=== PATIENT | male | born 1950 | race Caucasian/White ===

== ENCOUNTER 2016-10-10 14:26 | Inpatient (IN) | payer OTHER ==
[~2016-10-10] VITALS: Ht 172.7 cm; Wt 83.5 kg
[2016-10-10 14:27] VITALS: BP 167/84; PULSE 76; RESP 20; TEMP 97.6; O2SAT 99
[2016-10-10 14:59] VITALS: RESP 18; O2SAT 96
[2016-10-10] MEDS ORDERED: ASPI-110 PO (14:59)
[2016-10-10] MEDS ORDERED: NEXI20CA PO (14:59)
[2016-10-10] MEDS ORDERED: MONT10TA4 PO (14:59)
[2016-10-10] MEDS ORDERED: ACYC-101 PO (14:59)
[2016-10-10] MEDS ORDERED: VENTAER INH (14:59)
[2016-10-10] MEDS ORDERED: ADVA250A INH (14:59)
[2016-10-10] MEDS ORDERED: SODIUM CHLORIDE 0.9% FLUSH 10 ML FLUSH IVF PRN (15:00)
[2016-10-10 15:18] LABS: AUTOMATED NEUTROPHIL # 6.6 TH/MM3 (1.8-7.7); BASOPHIL # 0.1 TH/MM3 (0-0.2); BASOPHIL % 0.5 % (0.0-2.0); EOSINOPHIL # 0.2 TH/MM3 (0-0.4); EOSINOPHIL % 2.4 % (0.0-4.0); HEMATOCRIT 44.4 % (39.0-51.0); HEMO FLAGS DIFF FINAL; LYMPH % 23.9 % (9.0-44.0); LYMPHOCYTE # 2.4 TH/MM3 (1.0-4.8); MEAN CELL VOLUME 92.5 FL (80.0-100.0); MEAN CORPUSCULAR HEMOGLOBIN 30.5 PG (27.0-34.0); MEAN CORPUSCULAR HGB CONC 32.9 % (32.0-36.0); MONO % 8.1 % (0.0-8.0); NEUT % 65.1 % (16.0-70.0); PLATELET COUNT 289 TH/MM3 (150-450); RED CELL DISTRIBUTION WIDTH 13.4 % (11.6-17.2); WHITE BLOOD COUNT 10.1 TH/MM3 (4.0-11.0)
--- NOTE | 2016-10-10 15:20 | PD ---
HPI Chief Complaint: Medical Clearance Time Seen by Provider: 14:57 Travel History International Travel<30 days: No Contact w/Intl Traveler<30days: No Traveled to known affect area: No History of Present Illness HPI The patient 66 years old and arrives here after a stat MRI of the brain with and without contrast was performed at [facility]. 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 The patient was seen at an outpatient ophthalmology office this morning, Dr. Golden, who noted no visual field deficit and he ordered the MRI stat. In summary the patient has had weeks of worsening expressive aphasia. His notes that the patient's text messages don't make sense. He complains of some weakness in the right foot at times and furthermore that he has been falling towards the right on occasion. Dr. Golden, of ophthalmology, reports the patient was appropriate at the time of his examination with no focal neurologic deficit he could appreciate. PFSH Past Medical History Asthma: Yes Diabetes: No GERD: Yes Respiratory: Yes (ASTHMA) Tetanus Vaccination: > 5 Years Influenza Vaccination: No Past Surgical History Surgical History: No Previous Surgery Social History Alcohol Use: No Tobacco Use: No Substance Use: No Allergies-Medications (Allergen,Severity, Reaction): Coded Allergies: Penicillin (Verified Allergy, Unknown, FAMILIAL, 10/10/16) Reported Meds & Prescriptions Reported Meds & Active Scripts Active Reported Ventolin Hfa 18 GM Inh (Albuterol Sulfate) 90 Mcg/Act Aer 1 Puff INH Q4H PRN Nexium (Esomeprazole DR) 20 Mg Capdr 20 Mg PO DAILY Aspirin 81 (Aspirin) 81 Mg Tabdr 81 Mg PO DAILY Montelukast (Montelukast Sodium) 10 Mg Tab 10 Mg PO HS Advair Diskus Inh (Fluticasone-Salmeterol Inh) 250-50 Mcg/Blist Aer 1 Puff INH BID Rinse mouth after use. Zovirax (Acyclovir) 800 Mg Tab 800 Mg PO BID Review of Systems Except as stated in HPI: all other systems reviewed are Neg Physical Exam Narrative GENERAL: 66-year-old male well-nourished well-developed pleasant SKIN: Focused skin assessment warm/dry. HEAD: Atraumatic. Normocephalic. EYES: Pupils equal and round. No scleral icterus. No injection or drainage. ENT: No nasal bleeding or discharge. Mucous membranes pink and moist. NECK: Trachea midline. No JVD. CARDIOVASCULAR: Regular rate and rhythm. No murmur appreciated. RESPIRATORY: No accessory muscle use. Clear to auscultation. Breath sounds equal bilaterally. GASTROINTESTINAL: Abdomen soft, non-tender, nondistended. Hepatic and splenic margins not palpable. MUSCULOSKELETAL: No obvious deformities. No clubbing. No cyanosis. No edema. NEUROLOGICAL: Expressive aphasia is noted although the patient can more or less articulate his thoughts effectively. There is no focal cranial nerve deficit. Motor function is normal. PSYCHIATRIC: Appropriate mood and affect; insight and judgment normal. Data Data Last Documented VS Vital Signs Date Time Temp Pulse Resp B/P Pulse Ox O2 Delivery O2 Flow Rate FiO2 10/10/16 14:59 18 96 Room Air 10/10/16 14:50 2 10/10/16 14:27 97.6 167/84 Vital signs reviewed Orders Basic Metabolic Panel (Bmp) (10/10/16 14:57) Complete Blood Count With Diff (10/10/16 14:57) Ecg Monitoring (10/10/16 14:57) Iv Access Insert/Monitor (10/10/16 14:57) Oximetry (10/10/16 14:57) Sodium Chloride 0.9% Flush (Ns Flush) (10/10/16 15:00) Dexamethasone Inj (Decadron Inj) (10/10/16 16:00) Levetiracetam 1000 Mg Inj (Keppra 1000 M (10/10/16 16:00) Ct Thorax/ Chest W Iv Contrast (10/10/16 16:00) Ct Abd/Pel W Iv Contrast(Rout) (10/10/16 16:00) Admit Order (Ed Use Only) (10/10/16 16:00) Acyclovir (Zovirax) (10/10/16 21:00) Albuterol Hfa Inh (Proair Hfa Inh) (10/10/16 16:15) Montelukast (Singulair) (10/10/16 21:00) (Nf) Esomeprazole Dr (Nexium) (10/11/16 09:00) (Nf) Fluticasone-Salmeterol Inh (Advair (10/10/16 21:00) Ns + Kcl 20 Meq Inj (Ns + Kcl 20 Meq Inj (10/10/16 16:15) Admit To Inpatient (10/10/16 ) Vital Signs (Adult) Q4H (10/10/16 16:15) Neuro Checks . ORDERED (10/10/16 16:15) Activity Oob Ad Anitra (10/10/16 16:15) Elevate Head Of Bed (10/10/16 16:15) Intake + Output DEIRDRE.Q8H (10/10/16 16:15) Npo After Midnight W/ Po Meds (10/11/16 Breakfast) Diet Regular Basic (10/10/16 Dinner) Sodium Chloride 0.9% Flush (Ns Flush) (10/10/16 16:15) Sodium Chloride 0.9% Flush (Ns Flush) (10/10/16 21:00) Levetiracetam (Keppra) (10/10/16 16:15) Lorazepam Inj (Ativan Inj) (10/10/16 16:15) Docusate Sodium (Colace) (10/10/16 21:00) Magnesium Hydroxide Liq (Milk Of Magnesi (10/10/16 16:15) Al-Mag Hy-Si 40-40-4 Mg/Ml Liq (Mag-Al P (10/10/16 16:15) Ondansetron Inj (Zofran Inj) (10/10/16 16:15) Calcium Gluconate Inj (Calcium Gluconate (10/10/16 16:15) Potassium Chlor 20 Meq Premix (Kcl 20 Me (10/10/16 16:15) Magnesium Sulfate Inj (Magnesium Sulfate (10/10/16 16:15) Acetamin-Hydrocod 325-10 Mg (Hope 10-32 (10/10/16 16:15) Acetamin-Hydrocod 325-10 Mg (Hope 10-32 (10/10/16 16:15) Morphine Inj (Morphine Inj) (10/10/16 16:15) Dexamethasone Inj (Decadron Inj) (10/10/16 16:15) Labetalol Inj (Trandate Inj) (10/10/16 16:15) Clonidine (Catapres) (10/10/16 16:15) Acetaminophen (Tylenol) (7/6/17 16:15) Menthol Litzy ([place] Litzy) (10/10/16 16:15) Zolpidem (Ambien) (10/10/16 16:15) Albuterol Neb (Albuterol Neb) (10/10/16 16:15) Nicardipine Inj (Cardene Inj) (10/10/16 16:15) Inpatient Certification (10/10/16 ) Act Partial Throm Time (Ptt) (10/10/16 16:15) Prothrombin Time / Inr (Pt) (10/10/16 16:15) Type And Screen (10/10/16 16:15) Labs Laboratory Tests Test 10/10/16 15:00 White Blood Count 10.1 TH/MM3 Red Blood Count 4.80 MIL/MM3 Hemoglobin 14.6 GM/DL Hematocrit 44.4 % Mean Corpuscular Volume 92.5 FL Mean Corpuscular Hemoglobin 30.5 PG Mean Corpuscular Hemoglobin 32.9 % Concent Red Cell Distribution Width 13.4 % Platelet Count 289 TH/MM3 Mean Platelet Volume 7.9 FL Neutrophils (%) (Auto) 65.1 % Lymphocytes (%) (Auto) 23.9 % Monocytes (%) (Auto) 8.1 % Eosinophils (%) (Auto) 2.4 % Basophils (%) (Auto) 0.5 % Neutrophils # (Auto) 6.6 TH/MM3 Lymphocytes # (Auto) 2.4 TH/MM3 Monocytes # (Auto) 0.8 TH/MM3 Eosinophils # (Auto) 0.2 TH/MM3 Basophils # (Auto) 0.1 TH/MM3 CBC Comment DIFF FINAL Differential Comment Sodium Level 140 MEQ/L Potassium Level 4.1 MEQ/L Chloride Level 108 MEQ/L Carbon Dioxide Level 27.5 MEQ/L Anion Gap 5 MEQ/L Blood Urea Nitrogen 18 MG/DL Creatinine 1.12 MG/DL Estimat Glomerular Filtration 66 ML/MIN Rate Random Glucose 107 MG/DL Calcium Level 8.8 MG/DL [facility] Medical Decision Making Medical Screen Exam Complete: Yes Emergency Medical Condition: Yes Medical Record Reviewed: Yes Differential Diagnosis Intracranial mass, infection, stroke Narrative Course 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 The tumor measures 6. centimeters by 4.8 cm. He has expressive aphasia and has reportedly been falling towards the right although he is ambulatory in the ER with an essentially normal gait. CBC & BMP Diagram 10/10/16 15:00 MR imaging available is on the [facility] website. This case was discussed with Dr Browne of radiology and Dr Head for neurosurgery. The patient will be admitted to Dr. Head's service. CT thorax and abdomen/pelvis ordered. Decadron 4mg q6h, 1g Keppra, ISC admission. Of note upon reassessment there appears to be a zoster-like rash overlying the left anterior chest wall and left neck. All the patient's questions were answered at the bedside with his understanding that they are not considered expert opinion for surgical management and prognosis. Critical Care Narrative Aggregate critical care time was 35 minutes. Time to perform other separately billable procedures was not included in the critical care time. My time did not include minutes spent treating any other patients simultaneously or on activities that did not directly contribute to the patient's treatment. The services I provided to this patient were to treat and/or prevent clinically significant deterioration that could result in: Herniation of the brain, permanent neurologic deficit I provided critical care services requiring my management, as noted below: Chart data review, documentation time, medication orders and management, vital sign assessments/reviewing monitor data, ordering and reviewing lab tests, ordering and interpreting/reviewing x-rays and diagnostic studies, care of the patient and discussion of the patient with the admitting physicians. Diagnosis Primary Impression: Intracranial mass Additional Impression: Expressive aphasia Admitting Information Admitting Physician Requests: Jonny Milan MD Oct 10, 2016 15:20
[2016-10-10 15:33] LABS: BICARBONATE 27.5 MEQ/L (21.0-32.0); POTASSIUM 4.1 MEQ/L (3.5-5.1)
[2016-10-10] MEDS ORDERED: ONDANSETRON HCL 4 MG/2 ML VIAL IV PRN (16:15)
[2016-10-10] MEDS ORDERED: MORPHINE SULFATE 4 MG/ML INJ IV PRN (16:15)
[2016-10-10] MEDS ORDERED: LORazepam 2 MG/ML VIAL IVP PRN (16:15)
[2016-10-10] MEDS ORDERED: MAGNESIUM HYDROXIDE SUSP 30 ML CUP PO PRN (16:15)
[2016-10-10] MEDS ORDERED: LABETALOL HCL 100 MG/20 ML VIAL IV PRN (16:15)
[2016-10-10] MEDS ORDERED: POTASSIUM CHLOR 20 MEQ PREMIX 100 ML IV PRN (16:15)
[2016-10-10] MEDS ORDERED: MAGNESIUM SULFATE INJ 2 GM in SODIUM CHLORIDE 0.9% INJ 100 ML IV PRN (16:15)
[2016-10-10] MEDS ORDERED: cloNIDine HCL 0.1 MG TAB PO PRN (16:15)
[2016-10-10] MEDS ORDERED: MENTHOL LOZENGE BUCCAL PRN (16:15)
[2016-10-10] MEDS ORDERED: ALBUTEROL SULFATE 90 MCG/ACT HFA 18 GM INHALER INH PRN (16:15)
[2016-10-10] MEDS ORDERED: niCARdipine INJ 25 MG in SODIUM CHLOR 0.9% 250 ML INJ 250 ML IV SCH (16:15)
[2016-10-10] MEDS ORDERED: CALCIUM GLUCONATE INJ 1 GM in SODIUM CHLORIDE 0.9% INJ 100 ML IV PRN (16:15)
[2016-10-10] MEDS ORDERED: ALUMINUM/MAGNESIUM/SIMETH 30 ML CUP PO PRN (16:15)
[2016-10-10] MEDS ORDERED: ZOLPIDEM TARTRATE 5 MG TAB PO PRN (16:15)
[2016-10-10] MEDS ORDERED: ACETAMINOPHEN/HYDROcodone 325 MG/10 MG TAB PO PRN ×2 (16:15)
[2016-10-10] MEDS ORDERED: SODIUM CHLORIDE 0.9% FLUSH 10 ML FLUSH IV FLUSH PRN (16:15)
[2016-10-10] MEDS ORDERED: ACETAMINOPHEN 325 MG TAB PO PRN (16:15)
[2016-10-10] MEDS ORDERED: IOHEXOL 350 MG/ML 10 ML VIAL (for RAD DIAG) IV ONE (17:08)
--- NOTE | 2016-10-10 17:24 | RADRPT ---
EXAM DATE/TIME: 10/10/2016 16:54 [facility] COMPARISON: No previous studies available for comparison. INDICATIONS : Patient has mass left temporal lobe, patient having difficulty speeking, sent to evaluate chest,abdom in and pekvis. IV CONTRAST: 90 cc Omnipaque 350 (iohexol) IV ; Cumulative dose for multiple exams. RADIATION DOSE: 5.22 CTDIvol (mGy) ; Combined studies - Thorax/Abdomen/Pelvis MEDICAL HISTORY : None SURGICAL HISTORY : None. ENCOUNTER: Initial ACUITY: 1 day PAIN SCALE: 0/10 LOCATION: chest TECHNIQUE: Volumetric scanning of the chest was performed. Using automated exposure control and adjustment of t he mA and/or kV according to patient size, radiation dose was kept as low as reasonably achievable to obtain optimal diagnostic quality images. DICOM format image data is available electronically for review and comparison. FINDINGS: LUNGS: There some scarring in the right apex. There is a faint reticulonodular infiltrate in the anterior ri ght upper lung. Otherwise, the lungs are grossly clear. No definite pulmonary masses are demonstrated . There some mild bronchiectasis in the anterior left lower lung. PLEURA: There is no pleural thickening or pleural effusion. MEDIASTINUM: The heart and great vessels demonstrate no acute abnormality. There is no mediastinal or hilar lymph adenopathy. AXILLAE: Within normal limits. No lymphadenopathy. SKELETAL: Within normal limits for patient age. MISCELLANEOUS: The visualized upper abdominal organs demonstrate no acute abnormality. There are a few well-defined hepatic cysts throughout the liver. There appear to be gallstones in the gallbladder. CONCLUSION: 1. Faint reticulonodular infiltrate in the anterior right upper lung suggestive of an inflammatory ty pe process. 2. No definite pulmonary masses are demonstrated. 3. There is some bronchiectasis in the anterior left lower lung. 4. Several benign-appearing hepatic cysts. Karlo Marte MD on October 10, 2016 at 17:18 Board Certified Radiologist. This report was verified electronically.
--- NOTE | 2016-10-10 17:42 | RADRPT ---
EXAM DATE/TIME: 10/10/2016 16:55 [facility] COMPARISON: No previous studies available for comparison. INDICATIONS : Patient has mass left temporal lobe, difficulty speaking, evaluate chest,abdomin and pelvis. IV CONTRAST: 90 cc Omnipaque 350 (iohexol) IV ; Cumulative dose for multiple exams. ORAL CONTRAST: No oral contrast ingested. RADIATION DOSE: 5.22 CTDIvol (mGy) ; Combined studies - Thorax/Abdomen/Pelvis MEDICAL HISTORY : None SURGICAL HISTORY : None. ENCOUNTER: Initial ACUITY: 1 day PAIN SCALE: 0/10 LOCATION: abdomin TECHNIQUE: Volumetric scanning of the abdomen and pelvis was performed. Using automated exposure control and ad justment of the mA and/or kV according to patient size, radiation dose was kept as low as reasonably achievable to obtain optimal diagnostic quality images. DICOM format image data is available electro nically for review and comparison. FINDINGS: LOWER LUNGS: The visualized lower lungs are clear. LIVER: Homogeneous density. Multiple not appearing hepatic cysts are seen throughout the liver. The largest cyst measures 2.3 cm in the right lobe. There are multiple stones in the gallbladder. No surrounding inflammatory changes are seen. There is no dilation of the biliary tree. SPLEEN: Normal size without lesion. PANCREAS: Within normal limits. KIDNEYS: Normal in size and shape. There is no mass, stone or hydronephrosis. ADRENAL GLANDS: Within normal limits. VASCULAR: There is no aortic aneurysm. BOWEL/MESENTERY: The stomach, small bowel, and colon demonstrate no acute abnormality. There is no free intraperitone al air or fluid. The appendix is unremarkable. There is scattered diverticulosis of the descending an d sigmoid colon. No inflammatory changes. ABDOMINAL WALL: Within normal limits. RETROPERITONEUM: There is no lymphadenopathy. BLADDER: No wall thickening or mass. REPRODUCTIVE: Within normal limits. INGUINAL: There is no lymphadenopathy or hernia. MUSCULOSKELETAL: Within normal limits for patient age. CONCLUSION: 1. Multiple benign-appearing hepatic cysts. 2. Gallstones in the gallbladder. No biliary tract obstruction. 3. Scattered diverticulosis of the descending and sigmoid colon without inflammatory changes. Karlo Marte MD on October 10, 2016 at 17:36 Board Certified Radiologist. This report was verified electronically.
[2016-10-10 17:47] VITALS: BP 157/77; PULSE 77; RESP 18; O2SAT 96
[2016-10-10] MEDS: NS + KCL 20 MEQ INJ 1,000 ML IV SCH (17:53)
[2016-10-10] MEDS ORDERED: levETIRAcetam 1000 MG INJ 100 ML IV ONE (18:00)
[2016-10-10] MEDS ORDERED: DEXAMETHASONE SOD PHOS 4 MG/ML VIAL IV PUSH ONE (18:00)
[2016-10-10 19:00] LABS: BLOOD, URINE NEG (NEG); COMMENT (UR) CULT NOT INDICATED; CULTURE IF INDICATED CULT NOT INDICATED; GLUCOSE,URINE NEG (NEG); KETONE, URINE NEG (NEG); MUCUS URINE FEW /lpf (OCC); NITRITE,URINE NEG (NEG); PH, URINE 5.5 (5.0-8.5); URINE COLOR YELLOW (YELLW/STRAW)
--- NOTE | 2016-10-10 19:07 | MH ---
cc: ADRIANA MURO M.D. DATE OF ADMISSION: 10/10/2016 ADMITTING DIAGNOSIS: Left frontotemporoparietal lobe mass. HISTORY OF PRESENT ILLNESS: This is a 66-year-old right-handed gentleman who presents to the emergency room with progressive headaches along with speech deficits and right-sided visual field deficit along with weakness, more so on the right than on the left. Apparently the symptoms started over two months ago and have progressively worsened, especially in the last three weeks with speech deficits and then the visual deficits. He relates that in July he was in [place] and started noticing some right-sided visual deficits and also hit his head but did not lose consciousness and subsequently the symptoms have been progressive. His primary care physician referred him to a neurologist and an continuous improvement black belt and he saw an continuous improvement black belt today and because of concern about a visual field deficit, he was sent for an MRI scan which revealed a large left hemisphere brain mass and he was subsequently referred to the emergency room for neurosurgical evaluation. PAST MEDICAL HISTORY: 1. Asthma. 2. Gastroesophageal reflux. 3. Eczema. 4. Recent shingles involving the left side of the face, neck and chest. 5. Cataracts. MEDICATIONS: 1. Aspirin 81 milligrams daily. 2. Nexium 20 milligrams daily. 3. Acyclovir 800 milligrams twice a day. 4. Albuterol inhaler one puff q. 4 hours PRN. 5. Advair Diskus one puff twice a day. 6. Montelukast 10 milligrams at bedtime. ALLERGIES: PENICILLIN. 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 He is and his is here with him. He does not have any siblings or children. He smokes a few cigarettes a day but he was a heavy smoker over 20 years ago. He drinks alcohol on occasional basis. REVIEW OF SYSTEMS: He complains of mild headache. He complains of blurred vision with loss of vision on the right side. He complains of difficulty with his speech and word-finding and expression. He complains of weakness, in particular, the right side dragging the leg. He complains of unsteadiness. He denies any chest pain or hemoptysis. He does get short of breath related to asthma but he has not had any asthmatic attack lately. He has had herpes zoster shingles that last few weeks involving the left side of the face, neck and chest. He is on acyclovir and he is improving although initially he was very inflamed and painful. He denies any abdominal pain. He denies any nausea or vomiting. He denies any recent weight gain or weight loss. He denies any exposure to any chemicals or insect bites. No incontinence. No history of easy bleeding or bruising. No fevers or chills. He had a flare-up of his eczema last month and was placed on a short course of steroids for that as well as the asthma exacerbation. LABORATORY STUDIES: White blood cell count 10.1, hemoglobin 14.6, platelet count 289,000. Sodium 140, potassium 4.1, BUN 18, creatinine 1.12, glucose 107. RADIOGRAPHIC STUDIES: MRI scan of the brain with and without contrast from today reveals a large left hemisphere enhancing mass involving the frontal, temporal and parietal lobes extending into the basal ganglia. The anterior-posterior dimension is 7.8 cm. The lateral dimension is 4.9 cm and the craniocaudal dimension is 5 cm. This mass effects a midline shift noted also. CT of the chest and abdomen does not reveal any masses. PHYSICAL EXAMINATION: VITAL SIGNS: Temperature 97.6, pulse is 77, respiratory rate 18, blood pressure 167/84, oxygen saturation is 96% on room air. HEAD: Normocephalic and atraumatic. NECK: The neck is supple. CHEST: Clear bilaterally. HEART: Regular rate and rhythm. Normal S1-S2. ABDOMEN: Abdomen soft and nontender. Positive bowel sounds. EXTREMITIES: No cyanosis or edema. NEUROLOGICAL EXAMINATION: He is awake and alert. Pupils are equal and reactive. Extraocular muscles intact. He has a mild right facial droop. Tongue is midline. He has a right pronator drift and the right lower extremity is 4/5. Positive Babinski on the right side. Appreciates light touch sensation. He has a moderate to severe expressive aphasia and moderate receptive aphasia with word-finding difficulty. He has a right homonymous hemianopsia. IMPRESSION: 1. Large left frontotemporoparietal lobe mass effect and midline shift. There are no other masses noted in the chest, abdomen or pelvis and the concern is obviously for primary brain mass likely a glioblastoma multiforme. 2. Asthma. 3. Recent bout of shingles. PLAN: 1. The patient will be admitted to the intensive care unit for close neurologic and hemodynamic monitoring and his hypertension will also be regulated. 2. He will be started on Decadron for the cerebral swelling and Keppra for seizure prophylaxis. 3. His head of bed will be kept elevated at 30 degrees. 4. Sequential compression devices will be used for DVT prophylaxis along with Protonix for gastrointestinal stress ulcer prophylaxis. 5. I have recommended a left craniotomy with excisional biopsy of this large mass. Obviously a gross total resection cannot be achieved given the dominant hemisphere location and involvement of the critical structures in particular affecting his speech and the motor cortex as well as the corticospinal tract. 6. Further treatment with radiation and chemotherapy will likely be also needed once we have pathologic confirmation of this brain mass. The patient and his had a lot of questions regarding the diagnosis and prognosis and all of these questions were answered and they understand that more definitive answers will depend on the pathologic diagnosis of this brain mass. They are requesting that we proceed with surgery and gave informed consent. Accordingly the surgery will be scheduled for tomorrow morning. MD SAKSHI Blue/JUSTIN /6:34 PM /6:48 PM
[2016-10-10 19:15] LABS: APTT (PATIENT) 28.5 SEC (24.3-30.1); PROTHROMBIN TIME - PATIENT 10.9 SEC (9.8-11.6)
[2016-10-10 20:00] VITALS: BP 155/76; PULSE 69; RESP 22; TEMP 98; O2SAT 92
[2016-10-10] MEDS: BUDESONIDE-FORMOTEROL 160/4.5 MCG INHALER INH SCH (21:44)
[2016-10-10] MEDS: ACYCLOVIR 800 MG TAB PO SCH (21:45)
[2016-10-10] MEDS: MONTELUKAST SODIUM 10 MG TAB PO SCH (21:46)
[2016-10-10] MEDS: levETIRAcetam 500 MG TAB PO SCH (21:47)
[2016-10-10] MEDS: DOCUSATE SODIUM 100 MG CAP PO SCH (21:48)
[2016-10-10] MEDS: SODIUM CHLORIDE 0.9% FLUSH 10 ML FLUSH IV FLUSH SCH (21:48)
[2016-10-10 22:00] VITALS: PULSE 70
[2016-10-10] MEDS: DEXAMETHASONE SOD PHOS 4 MG/ML VIAL IV SCH (23:02)
[2016-10-10] MEDS: RESP: ALBUTEROL 2.5 MG/3 ML NEB (PRN) NEB (23:13)
[2016-10-10 23:23] VITALS: O2SAT 93
[2016-10-11] VITALS (14 sets, daily range): BP systolic 105–142; BP diastolic 52–80; PULSE 69–95; RESP 14–24; TEMP 97.1–98.6; O2SAT 92–98
[2016-10-11] MEDS: DEXAMETHASONE SOD PHOS 4 MG/ML VIAL IV SCH ×3 (06:00→18:01)
[2016-10-11] MEDS: RESP: ALBUTEROL 2.5 MG/3 ML NEB (PRN) NEB (08:28)
[2016-10-11] MEDS: ACYCLOVIR 800 MG TAB PO SCH ×2 (08:46→20:34)
[2016-10-11] MEDS: PANTOPRAZOLE SOD 20 MG DELAYED RELEASE TAB PO SCH (08:46)
[2016-10-11] MEDS: DOCUSATE SODIUM 100 MG CAP PO SCH ×2 (08:46→20:34)
[2016-10-11] MEDS: levETIRAcetam 500 MG TAB PO SCH ×2 (08:46→20:34)
[2016-10-11] MEDS: SODIUM CHLORIDE 0.9% FLUSH 10 ML FLUSH IV FLUSH SCH ×2 (09:00→20:34)
[2016-10-11] MEDS ORDERED: PROPOFOL 200 MG/20 ML AMP IV ONE (09:16)
[2016-10-11] MEDS ORDERED: NEOSTIGMINE 3 MG/3 ML SYR IV ONE (09:18)
[2016-10-11] MEDS ORDERED: NORMOSOL R INJ 1,000 ML IV ONE (09:18)
[2016-10-11] MEDS ORDERED: ONDANSETRON HCL 4 MG/2 ML VIAL IV PUSH ONE (09:18)
[2016-10-11] MEDS ORDERED: PHENYLEPH/NS 1000 MCG/10 ML SYR IV ONE (09:18)
[2016-10-11] MEDS: BUDESONIDE-FORMOTEROL 160/4.5 MCG INHALER INH SCH ×2 (09:22→20:34)
[2016-10-11] MEDS ORDERED: MIDAZOLAM HCL 2 MG/2 ML VIAL ONE (10:24)
[2016-10-11] MEDS ORDERED: FAMOTIDINE 20 MG/2 ML VIAL ONE (10:24)
[2016-10-11] MEDS ORDERED: MANNITOL INJ 50 ML ONE (11:47)
[2016-10-11] MEDS ORDERED: GELFOAM SIZE 100 ONE (11:47)
[2016-10-11] MEDS ORDERED: GENTAMICIN SULFATE 80 MG/2 ML VIAL ONE (11:47)
[2016-10-11] MEDS ORDERED: THROMBIN (TOPICAL) 5,000 UNIT VIAL ONE (11:48)
[2016-10-11] MEDS ORDERED: levETIRAcetam 500 MG/5 ML VIAL IV ONE (11:52)
[2016-10-11] MEDS ORDERED: VANCOMYCIN HCL 1000 MG VIAL ONE (13:08)
[2016-10-11] MEDS ORDERED: SODIUM CHLOR 0.9% 250 ML INJ 250 ML ONE (13:09)
--- NOTE | 2016-10-11 13:23 | EKG ---
Date Performed: 10/10/2016 Time Performed: 17:18:06 PTAGE: 66 years EKG: Sinus rhythm NORMAL ECG NO PREVIOUS TRACING DOCTOR: Clint Correa Interpretating Date/Time 10/11/2016 13:21:58
[2016-10-11] MEDS ORDERED: BUPIVACAINE/EPINEPHRINE 0.5% PF 30 ML VIAL INFIL ONE (13:27)
[2016-10-11] MEDS ORDERED: DO NOT ADM ANY ANTICOAGULANT DRUGS PRN (15:23)
--- NOTE | 2016-10-11 15:23 | PD.OP ---
Operative Report Date of Surgery: Oct 11, 2016 Preoperative Diagnosis: Large left frontal parietal temporal lobe cystic mass Postoperative Diagnosis: Same Procedure: Left frontotemporal parietal craniotomy for resection of mass lesion; intraoperative BrainLab stereotactic navigation use; microsurgical technique Anesthesia: Gen. endotracheal by Dandre Almanza Surgeon: Tong Head M.D. Double End Sewer(s): Bridgett Gomez Operation and Findings: Following initiation of general endotracheal anesthesia the patient had invasive lines and Reveles catheter in place along with sequential compression device. A gram of vancomycin and Keppra 500 mg as well as 10 mg Decadron, mannitol 25 g was administered intravenously and he was positioned supine with and head turned to the right side and secured in the [place] 3 pin headrest. The BrainLab navigation system was then registered with external landmarks and good accuracy confirmed. A left curvilinear frontoparietal temporal incision area head shaved and prepped with ChloraPrep and sterilely draped in the usual sterile fashion. Incision was then made after infiltrating the scalp was 0.5% Marcaine with epinephrine solution a skin incision made and Kevin clips were used at the scalp edges for hemostasis and the flap retracted with hooks. Left temporalis muscle and fascia was also incised and detached from the temporal bone and retracted with hooks. With an automated asic verification engineer temporal bur hole made and then with the craniotome the bone flap was elevated. The dura opened in a cruciate format and bone holes placed in the craniotomy edges with 4-0 Nurolon dural tacking stitches for hemostasis. Further dissection was undertaken using microtechnique with microscope medication. Significant brain swelling was noted after the dural opening. A corticectomy about 3 cm posterior from the temporal pole was made and the anterior border of the mass which was localized with the navigation system also. Resection of this mass was undertaken using microtechnique microscope magnification along with the BrainLab navigation guidance. The mass extended up to the pial surface but there was no distinct border between the brain and the mass and was very infiltrative in nature with necrotic brownish grayish component along with partial cystic component but no pus was evident. Most of the mass easily suctioned out and the medial and frontal margins were completely free of any residual abnormality but more posteriorly I do not undertaken aggressive resection since the involvement of the dominant the speech area as well as more superiorly the motor cortex. Fresh frozen specimen sent was not very conclusive with possibility being either glioma as well as infection. Specimens were sent for permanent pathology sections as well as a Gram stain and cultures although most of the mass was suctioned out. Bipolar cautery used for hemostasis in the resection bed which was then lined with Surgicel and no bleeding was encountered at this point. Cavity was filled with saline solution and the dura approximately using 4 Nurolon sutures with a central dural tacking stitch. The brain was very relaxed and pulsatile at this point. Bone flap approximated using Paddy mini plates and bur hole covers. The area was then copiously irrigated. The temporalis fascia was approximated and using 2-0 Vicryl sutures and the galea reapproximated using 3-0 Vicryl interrupted sutures and final scalp closure was with rose. The Bolivar head was then removed and a sterile pressing dressing applied. There were no intraoperative complications and all sponge and needle count was correct at the end of the procedure. Estimated blood loss about 100 cc. Patient was extubated and taken to the recovery room. Tong Head MD Oct 11, 2016 15:23
[2016-10-11] MEDS ORDERED: fentaNYL CITRATE 250 MCG/5 ML AMP ONE (15:38)
[2016-10-11 15:50] LABS: HEMATOCRIT 40.2 % (39.0-51.0); MEAN CELL VOLUME 93.3 FL (80.0-100.0); MEAN CORPUSCULAR HEMOGLOBIN 29.9 PG (27.0-34.0); MEAN CORPUSCULAR HGB CONC 32.1 % (32.0-36.0); PLATELET COUNT 313 TH/MM3 (150-450); RED BLOOD COUNT 4.31 MIL/MM3 (4.50-5.90); RED CELL DISTRIBUTION WIDTH 13.3 % (11.6-17.2); REVIEW FLAG FINAL; WHITE BLOOD COUNT 14.4 TH/MM3 (4.0-11.0)
[2016-10-11] MEDS: NS + KCL 20 MEQ INJ 1,000 ML IV SCH (15:53)
[2016-10-11] MEDS: RESP: ALBUTEROL 2.5 MG/3 ML NEB (SCH) NEB ×2 (16:00→20:23)
[2016-10-11 16:18] LABS: BICARBONATE 22.5 MEQ/L (21.0-32.0); POTASSIUM 4.4 MEQ/L (3.5-5.1)
--- NOTE | 2016-10-11 17:16 | RADRPT ---
EXAM DATE/TIME: 10/11/2016 16:26 [facility] COMPARISON: No previous studies available for comparison. INDICATIONS : Post-op craniotomy, neoplasm. RADIATION DOSE: 53.26 CTDIvol (mGy) MEDICAL HISTORY : Mass left frontal, temporal lobe SURGICAL HISTORY : Craniotomy. ENCOUNTER: Subsequent ACUITY: 2 days PAIN SCALE: 0/10 LOCATION: Cranial TECHNIQUE: Multiple contiguous axial images were obtained of the head. Using automated exposure control and adj ustment of the mA and/or kV according to patient size, radiation dose was kept as low as reasonably a chievable to obtain optimal diagnostic quality images. DICOM format image data is available electro nically for review and comparison. FINDINGS: Patient is status post a craniotomy for neoplasm. I do not have the immediate preop study. There is pneumocephalus in the left hemisphere. There is parenchymal hemorrhage in the operative sit e. There is persistent 6 mm of midline shift, left to right. The right hemisphere is unremarkable. The posterior fossa appears normal. CONCLUSION: 1. Midline shift as described above. Postoperative changes in the left parieto-occipital region wit h left pneumocephalus. Edinson Kaplan MD FACR on October 11, 2016 at 16:54 Board Certified Radiologist. This report was verified electronically.
[2016-10-11] MEDS: MONTELUKAST SODIUM 10 MG TAB PO SCH (20:34)
[2016-10-12] VITALS (13 sets, daily range): BP systolic 127–163; BP diastolic 61–75; PULSE 69–91; RESP 16–32; TEMP 98.3–98.9; O2SAT 95–98
[2016-10-12] MEDS: DEXAMETHASONE SOD PHOS 4 MG/ML VIAL IV SCH ×4 (00:08→18:00)
[2016-10-12] MEDS: NS + KCL 20 MEQ INJ 1,000 ML IV SCH ×3 (03:41→20:00)
[2016-10-12] MEDS: RESP: ALBUTEROL 2.5 MG/3 ML NEB (SCH) NEB ×4 (03:54→13:14)
[2016-10-12] MEDS: BUDESONIDE-FORMOTEROL 160/4.5 MCG INHALER INH SCH ×2 (08:27→20:01)
[2016-10-12] MEDS: PANTOPRAZOLE SOD 20 MG DELAYED RELEASE TAB PO SCH (09:03)
[2016-10-12] MEDS: ACYCLOVIR 800 MG TAB PO SCH ×2 (09:03→20:00)
[2016-10-12] MEDS: levETIRAcetam 500 MG TAB PO SCH ×2 (09:03→20:00)
[2016-10-12] MEDS: DOCUSATE SODIUM 100 MG CAP PO SCH ×2 (09:03→20:00)
[2016-10-12] MEDS: SODIUM CHLORIDE 0.9% FLUSH 10 ML FLUSH IV FLUSH SCH ×2 (09:03→20:01)
--- NOTE | 2016-10-12 10:44 | RADRPT ---
EXAM DATE/TIME: 10/12/2016 10:26 [facility] COMPARISON: CT BRAIN W/O CONTRAST, October 11, 2016, 16:26. INDICATIONS : Status post craniotomy. RADIATION DOSE: 50.61 CTDIvol (mGy) MEDICAL HISTORY : brain tumor SURGICAL HISTORY : Tonsillectomy. Craniotomy. ENCOUNTER: Initial ACUITY: 1 day PAIN SCALE: 4/10 LOCATION: Bilateral head TECHNIQUE: Multiple contiguous axial images were obtained of the head. Using automated exposure control and adj ustment of the mA and/or kV according to patient size, radiation dose was kept as low as reasonably a chievable to obtain optimal diagnostic quality images. DICOM format image data is available electro nically for review and comparison. FINDINGS: CEREBRUM: There is a stable area of hypodensity with some small areas of hemorrhage in the posterior left tempo ral region measuring 3.6 x 3.1 cm. The areas of hemorrhage are along the medial margin measuring less than a centimeter across. The amount of hemorrhage is similar to the previous days film. There is ag ain slight shift from left to right. At the level of the septum pellucidum and now measures 4 mm, pre viously was 6 mm. A small amount of pneumocephalus remains on the left. In the left posterior temporal cranial fossa there is a small focal area of hemorrhage measuring 12 mm across which is similar to the previous study POSTERIOR FOSSA: The cerebellum and brainstem are intact. The 4th ventricle is midline. The cerebellopontine angle i s unremarkable. EXTRACRANIAL: The visualized portion of the orbits is intact. SKULL: Patient had a left-sided craniotomy with residual pneumocephalus. Suspected sinus surgery. No eviden ce of skull fracture. CONCLUSION: Residual hypodensity with small areas of hemorrhage in the posterior left temporal lobe. Small area o f possible extra-axial hemorrhage in the posterior left temporal cranial fossa unchanged in the previ ous study. Overall less mass effect with less shift from left to right. Prosper Mitchell MD on October 12, 2016 at 10:39 Board Certified Radiologist. This report was verified electronically.
[2016-10-12] MEDS: MONTELUKAST SODIUM 10 MG TAB PO SCH (20:00)
--- NOTE | 2016-10-12 20:24 | HHI.NSPN ---
History Chief Complaint: persistent speech difficulty Interval History 66-year-old male with recent onset of speech difficulty and visual problems. Preoperative MRI with large left hemispheric mass. 10/11/16: Left craniotomy for resection of left hemisphere lesion. 10/12/16: Some persistent speech difficulty but stable over the past day. Awake and alert. Tolerating diet well. Ambulating without difficulty. Exam Results Vital Signs Date Time Temp Pulse Resp B/P Pulse Ox O2 Delivery O2 Flow Rate FiO2 10/12/16 18:00 81 10/12/16 16:00 98.8 19 135/66 96 10/12/16 08:32 2.00 10/12/16 07:00 Nasal Cannula Intake and Output 10/11/16 10/11/16 10/12/16 08:00 16:00 00:00 Intake Total 241 ml 2398 ml 550 ml Output Total 350 ml 800 ml 750 ml Balance -109 ml 1598 ml -200 ml Physical Examination Patient is sitting up in a chair. His is in the room. He is awake and alert conversant and appropriate. He has very mild dysarthria, mild speech hesitancy and word finding difficulty with some inappropriate words. Right homonymous visual field deficit. Facial sensory motor, tongue palate sternocleidomastoid testing are all intact. Sensation intact to light touch all extremities Moves all extremities with good strength to command Lab, Micro, Other Results 10/12/16 CT scan head images reviewed by the undersigned. Agree with findings as below: Head CT 10/12/16 1005 Signed Impressions: Service Date/Time: Wednesday, October 12, 2016 10:26 - CONCLUSION: Residual hypodensity with small areas of hemorrhage in the posterior left temporal lobe. Small area of possible extra-axial hemorrhage in the posterior left temporal cranial fossa unchanged in the previous study. Overall less mass effect with less shift from left to right. Prosper Mitchell MD Medical Decision Making Impression and Plan Impression: Stable neurologic exam postoperative. Some persistent speech deficit but stable over the past day. Plan: Findings were discussed with the patient and his . Continue close neurologic checks and ISC. Increase activity as tolerated Tolerating diet well Non - chemical DVT prophylaxis [facility] Doyle Babin MD Oct 12, 2016 20:24
[2016-10-13] VITALS (12 sets, daily range): BP systolic 122–147; BP diastolic 68–92; PULSE 60–85; RESP 18–22; TEMP 97.7–99.2; O2SAT 93–95
[2016-10-13] MEDS: NS + KCL 20 MEQ INJ 1,000 ML IV SCH ×2 (06:13→08:54)
[2016-10-13] MEDS: DEXAMETHASONE SOD PHOS 4 MG/ML VIAL IV SCH ×4 (06:13→18:21)
[2016-10-13] MEDS: PANTOPRAZOLE SOD 20 MG DELAYED RELEASE TAB PO SCH (08:51)
[2016-10-13] MEDS: ACYCLOVIR 800 MG TAB PO SCH ×2 (08:51→20:30)
[2016-10-13] MEDS: levETIRAcetam 500 MG TAB PO SCH ×2 (08:51→20:30)
[2016-10-13] MEDS: DOCUSATE SODIUM 100 MG CAP PO SCH ×2 (08:51→20:30)
[2016-10-13] MEDS: SODIUM CHLORIDE 0.9% FLUSH 10 ML FLUSH IV FLUSH SCH ×2 (08:51→20:31)
[2016-10-13] MEDS: BUDESONIDE-FORMOTEROL 160/4.5 MCG INHALER INH SCH ×2 (08:55→20:31)
--- NOTE | 2016-10-13 13:33 | HHI.NSPN ---
History Chief Complaint: persistent speech difficulty Interval History 66-year-old male with recent onset of speech difficulty and visual problems. Preoperative MRI with large left hemispheric mass. 10/11/16: Left craniotomy for resection of left hemisphere lesion. 10/12/16: Some persistent speech difficulty but stable over the past day. Awake and alert. Tolerating diet well. Ambulating without difficulty. 10/13/16: Remains awake and alert. Speech improving Exam Results Vital Signs Date Time Temp Pulse Resp B/P Pulse Ox O2 Delivery O2 Flow Rate FiO2 10/13/16 12:00 98.0 68 20 123/68 95 10/13/16 07:00 Nasal Cannula 2.00 Intake and Output 10/12/16 10/12/16 10/13/16 08:00 16:00 00:00 Intake Total 552 ml 1160 ml 634 ml Output Total 800 ml 850 ml 550 ml Balance -248 ml 310 ml 84 ml Physical Examination Patient is sitting up in a chair. His is in the room again this morning. He is awake and alert conversant and appropriate. Speech improved versus 10/12/16. Minimal dysarthria and word finding deficit. Responds appropriately to questions and commands. Right homonymous visual field deficit. Facial sensory motor, tongue palate sternocleidomastoid testing are all intact. Sensation intact to light touch all extremities Moves all extremities with good strength to command Medical Decision Making Impression and Plan Impression: Stable neurologic exam postoperative. Speech deficit improving Plan: Findings were discussed with the patient and his in the ISC today.. Continue close neurologic checks and ISC. Increase activity as tolerated Tolerating diet well Discontinue IV fluids Non - chemical DVT prophylaxis Remains on Keppra for seizure prophylaxis Doyle Babin MD Oct 13, 2016 13:33
[2016-10-13] MEDS: MONTELUKAST SODIUM 10 MG TAB PO SCH (20:31)
[2016-10-14] VITALS (12 sets, daily range): BP systolic 128–151; BP diastolic 70–85; PULSE 60–73; RESP 19–24; TEMP 98–98.8; O2SAT 93–94
[2016-10-14] MEDS: DEXAMETHASONE SOD PHOS 4 MG/ML VIAL IV SCH ×5 (00:17→23:04)
[2016-10-14] MEDS: PANTOPRAZOLE SOD 20 MG DELAYED RELEASE TAB PO SCH (08:27)
[2016-10-14] MEDS: BUDESONIDE-FORMOTEROL 160/4.5 MCG INHALER INH SCH ×2 (08:27→20:22)
[2016-10-14] MEDS: ACYCLOVIR 800 MG TAB PO SCH ×2 (08:27→20:17)
[2016-10-14] MEDS: DOCUSATE SODIUM 100 MG CAP PO SCH ×2 (08:27→20:17)
[2016-10-14] MEDS: SODIUM CHLORIDE 0.9% FLUSH 10 ML FLUSH IV FLUSH SCH ×2 (08:27→20:17)
[2016-10-14] MEDS: levETIRAcetam 500 MG TAB PO SCH ×2 (08:27→20:17)
--- NOTE | 2016-10-14 09:17 | HHI.NSPN ---
(Henrik Coughlin) History Chief Complaint: persistent speech difficulty (Henrik Coughlin) Interval History 66-year-old male with recent onset of speech difficulty and visual problems. Preoperative MRI with large left hemispheric mass. 10/11/16: Left craniotomy for resection of left hemisphere lesion. 10/12/16: Some persistent speech difficulty but stable over the past day. Awake and alert. Tolerating diet well. Ambulating without difficulty. 10/13/16: Remains awake and alert. Speech improving 10/14/16: Pt awake and alert. Expressive aphasia. Denies headache. No nausea or vomiting. No paresthesias in face or extremities. Pt states he is ambulating better, not drifting to the right as preoperatively. (Henrik Coughlin) Review of Systems General: Negative for: fever, chills, insomnia Respiratory: Negative for: shortness of breath, cough, sputum Cardiovascular: Negative for: chest pain Gastrointestinal: Negative for: nausea, vomitting, diarrhea, constipation ( Henrik Coughlin) Exam Results Vital Signs Date Time Temp Pulse Resp B/P Pulse Ox O2 Delivery O2 Flow Rate FiO2 10/14/16 06:00 61 10/14/16 04:00 98.1 23 151/85 93 10/13/16 19:00 Room Air 10/13/16 07:00 2.00 Intake and Output 10/13/16 10/13/16 10/14/16 08:00 16:00 00:00 Intake Total 200 ml 787 ml 200 ml Output Total 950 ml 1300 ml 750 ml Balance -750 ml -513 ml -550 ml (Henrik Coughlin) Physical Examination Resp: CTA bilaterally Heart: NSR no murmurs Abd: Soft positive bs Skin: No cyanosis or erythema. Incision clean and dry without signs of infection. Muscle: Moves all 4 extremities well. Neuro: Pt awake and alert. Face symmetric. Follows commands well. Speech with mild to moderate expressive aphasia. (Henrik Coughlin) Lab, Micro, Other Results Last Impressions Head CT 10/12/16 1005 Signed Impressions: Service Date/Time: Wednesday, October 12, 2016 10:26 - CONCLUSION: Residual hypodensity with small areas of hemorrhage in the posterior left temporal lobe. Small area of possible extra-axial hemorrhage in the posterior left temporal cranial fossa unchanged in the previous study. Overall less mass effect with less shift from left to right. Prosper Mitchell MD Chest CT 10/10/16 1600 Signed Impressions: Service Date/Time: October 16:54 - CONCLUSION: 1. Faint reticulonodular infiltrate in the anterior right upper lung suggestive of an inflammatory type process. 2. No definite pulmonary masses are demonstrated. 3. There is some bronchiectasis in the anterior left lower lung. 4. Several benign-appearing hepatic cysts. Karlo Marte MD Abdomen/Pelvis CT 10/10/16 1600 Signed Impressions: Service Date/Time: October 16:55 - CONCLUSION: 1. Multiple benign-appearing hepatic cysts. 2. Gallstones in the gallbladder. No biliary tract obstruction. 3. Scattered diverticulosis of the descending and sigmoid colon without inflammatory changes. Karlo Marte MD 10/13/16 10/13/16 10/14/16 15:00 23:00 07:00 Intake Total 787 ml 200 ml 100 ml Output Total 1300 ml 750 ml 850 ml Balance -513 ml -550 ml -750 ml Intake Oral 420 ml 200 ml 100 ml IV Total 367 ml Output Urine Total 1300 ml 750 ml 850 ml # Bowel Movements 0 (Henrik Coughlin) Medical Decision Making Impression and Plan A: 66 y/o M s/p left craniotomy for mass resection. POD #3 Path pending this morning. P: Continue with neuro checks. Continue with PT (Henrik Coughlin) Attending Statement The exam, history, and the medical decision-making described in the above note were completed with the assistance of the mid-level provider. I reviewed and agree with the findings presented. I attest that I had a [id number] encounter with the patient on the same day, and personally performed and documented my assessment and findings in the medical record. Overall doing where well with improved speech and also ambulates several times a day. Brain biopsy cultures are negative and pathology is pending. We will consult medical oncology and transfer to floor. (Tong Head MD) Henrik Coughlin Oct 14, 2016 09:17 Tong Head MD Oct 14, 2016 13:04
[2016-10-14] MEDS: RESP: ALBUTEROL 2.5 MG/3 ML NEB (PRN) NEB (16:08)
[2016-10-14] MEDS: MONTELUKAST SODIUM 10 MG TAB PO SCH (20:17)
[2016-10-15] VITALS: BP 114/63; PULSE 66; RESP 20; TEMP 97.1; O2SAT 97
[2016-10-15 04:00] VITALS: BP 115/62; PULSE 63; RESP 20; TEMP 97; O2SAT 94
[2016-10-15] MEDS: DEXAMETHASONE SOD PHOS 4 MG/ML VIAL IV SCH ×2 (06:35→11:03)
--- NOTE | 2016-10-15 07:08 | MB ---
cc: DORIS ISABEL M.D. DATE OF CONSULTATION 10/14/2016 REASON FOR CONSULTATION Consult requested by Dr. Head for evaluation of left frontotemporoparietal lobe mass. HISTORY OF PRESENT ILLNESS This is a 66-year-old very pleasant white male who has a history of asthma and gastroesophageal reflux disease. He was in his usual status of health up until 2 months ago. He developed a headache associated with visual symptoms. Subsequently he noticed weakness in both lower legs, more on the right than the left and he had multiple falls. He went to see his primary physician and he was referred to neurologist and textile conversion manager as he was having problem with vision. He saw the textile conversion manager who did not find any significant findings in his eyes. He ordered the MRI of the brain which was done at [facility]. This showed a very large left frontotemporoparietal lobe mass. The patient was advised to come to the emergency room last week. The patient to was admitted to Dr. Head's neurosurgeon service. A CAT scan of the chest, abdomen and pelvis was obtained which failed to show any primary lesions. The patient underwent surgery last week Friday by Dr. Head. He had craniotomy and resection of the brain mass. Frozen section was not conclusive, either being glioma as well as infection. The pathology report is still pending and I have been asked to see the patient for further evaluation. REVIEW OF SYSTEMS The patient is recovering from the surgery quite well. He is anxious to know the results of the biopsy. He has been having some headaches and visual difficulties. He denies any anorexia or weight loss. He denies any cough, shortness of breath, nausea, vomiting, diarrhea, constipation prior to going to the hospital. The rest of the review of systems is negative. PAST MEDICAL HISTORY 1. Asthma. 2. Gastroesophageal reflux disease. 3. Eczema. 4. Shingles. 5. Cataract. PAST SURGICAL HISTORY None. ALLERGIES PENICILLIN. MEDICATIONS Please see EMR. FAMILY HISTORY Noncontributory. SOCIAL HISTORY The patient is , lives with his . He smokes a few cigarettes a day but he was a heavy smoker over 20 years ago. He occasionally drinks alcohol. 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 FAMILY HISTORY The patient does not have any siblings or any children. PHYSICAL EXAMINATION GENERAL: This is a well-developed, well-nourished white male in no apparent distress. VITAL SIGNS: Temperature 98.5, heart rate is 60, blood pressure 143/75, O2 saturation 93%. HEENT: Fresh surgical scar noted on the left side. Drooping of the left eyelid noted. NECK: No lymphadenopathy noted. LUNGS: Clear. No wheezing, rhonchi or rales. HEART: Regular rate and rhythm. ABDOMEN: Soft, nontender. No hepatosplenomegaly. EXTREMITIES: No pedal edema. NEUROLOGY: Awake, alert, oriented x 3. SKIN: No significant lesions noted. ASSESSMENT Left temporoparietal lobe mass status post resection. The pathology report is still pending. PLAN I have reviewed his available records and I have discussed with the patient and his regarding the operative findings. The patient was found to have a large cystic mass. The frozen section was not conclusive. Either it could be glioma or infection. The pathology report is still pending. We discussed that if the pathology report shows malignancy, then we will discuss with him regarding the treatment. He is very anxious to know the results. We will check with the pathology department tomorrow to find out the status of the biopsy results. The pathology department is closed at this hour. Further recommendations based on his hospital stay. Thank you for asking my opinion. MD VADIM Mccray/POL[place] /10:42 PM /7:01 AM
[2016-10-15 08:16] VITALS: BP 133/79; PULSE 62; RESP 18; TEMP 97.1; O2SAT 96
[2016-10-15] MEDS: DOCUSATE SODIUM 100 MG CAP PO SCH (08:36)
[2016-10-15] MEDS: levETIRAcetam 500 MG TAB PO SCH (08:36)
[2016-10-15] MEDS: ACYCLOVIR 800 MG TAB PO SCH (08:36)
[2016-10-15] MEDS: PANTOPRAZOLE SOD 20 MG DELAYED RELEASE TAB PO SCH (08:36)
[2016-10-15] MEDS: SODIUM CHLORIDE 0.9% FLUSH 10 ML FLUSH IV FLUSH SCH (08:37)
[2016-10-15] MEDS: BUDESONIDE-FORMOTEROL 160/4.5 MCG INHALER INH SCH (08:39)
--- NOTE | 2016-10-15 09:37 | HHI.NSPN ---
History Chief Complaint: expressive speech difficulty improving Interval History 66-year-old male with recent onset of speech difficulty and visual problems. Preoperative MRI with large left hemispheric mass. 10/11/16: Left craniotomy for resection of left hemisphere lesion. 10/12/16: Some persistent speech difficulty but stable over the past day. Awake and alert. Tolerating diet well. Ambulating without difficulty. 10/13/16: Remains awake and alert. Speech improving 10/14/16: Pt awake and alert. Expressive aphasia. Denies headache. No nausea or vomiting. No paresthesias in face or extremities. Pt states he is ambulating better, not drifting to the right as preoperatively. 10/15/16: Pt awake and alert. Sitting up in bed. Expressive aphasia mild to moderate. Occasionally head discomfort. No nausea or vomiting. No paresthesias. good strength in extremities. Review of Systems General: Negative for: fever, chills, insomnia Respiratory: Negative for: shortness of breath, cough, sputum Cardiovascular: Negative for: chest pain Gastrointestinal: Negative for: nausea, vomitting, diarrhea, constipation Exam Results Vital Signs Date Time Temp Pulse Resp B/P Pulse Ox O2 Delivery O2 Flow Rate FiO2 10/15/16 08:16 97.1 62 18 133/79 96 10/14/16 22:43 Room Air 10/13/16 07:00 2.00 Intake and Output 10/14/16 10/14/16 10/15/16 08:00 16:00 00:00 Intake Total 100 ml 480 ml 240 ml Output Total 850 ml 900 ml 850 ml Balance -750 ml -420 ml -610 ml Physical Examination Resp: CTA bilaterally Heart: NSR no murmurs Abd: Soft positive bs Skin: No cyanosis or erythema. Incision clean and dry without signs of infection. Muscle: Moves all 4 extremities well. Neuro: Pt awake and alert. Face symmetric. Follows commands well. Speech with mild to moderate expressive aphasia. Lab, Micro, Other Results Last Impressions Head CT 10/12/16 1005 Signed Impressions: Service Date/Time: Wednesday, October 12, 2016 10:26 - CONCLUSION: Residual hypodensity with small areas of hemorrhage in the posterior left temporal lobe. Small area of possible extra-axial hemorrhage in the posterior left temporal cranial fossa unchanged in the previous study. Overall less mass effect with less shift from left to right. Prosper Mitchell MD Chest CT 10/10/16 1600 Signed Impressions: Service Date/Time: , October 10, 2016 16:54 - CONCLUSION: 1. Faint reticulonodular infiltrate in the anterior right upper lung suggestive of an inflammatory type process. 2. No definite pulmonary masses are demonstrated. 3. There is some bronchiectasis in the anterior left lower lung. 4. Several benign-appearing hepatic cysts. Karlo Marte MD Abdomen/Pelvis CT 10/10/16 1600 Signed Impressions: Service Date/Time: October 16:55 - CONCLUSION: 1. Multiple benign-appearing hepatic cysts. 2. Gallstones in the gallbladder. No biliary tract obstruction. 3. Scattered diverticulosis of the descending and sigmoid colon without inflammatory changes. Karlo Marte MD 10/14/16 10/14/16 10/15/16 15:00 23:00 07:00 Intake Total 480 ml 240 ml Output Total 900 ml 850 ml Balance -420 ml -610 ml Intake Oral 480 ml 240 ml IV Total 0 ml Output Urine Total 900 ml 850 ml # Voids 1 1 # Bowel Movements 0 0 Medical Decision Making Impression and Plan A: 66 y/o M s/p left craniotomy for mass resection. Path pending this morning. Cultures negative. P: Discussed with medical oncology and okay from their perspective to discharge home and follow up on 10/21/16. Discharge pt home Continue with Decadron and antiepileptic prophylaxis. Henrik Coughlin Oct 15, 2016 09:37
[2016-10-15] MEDS ORDERED: LEVE500 PO (09:44)
[2016-10-15] MEDS ORDERED: HYDR-3583 PO (09:44)
[2016-10-15] MEDS ORDERED: DEXA4TAB PO (09:44)
--- NOTE | 2016-10-15 09:58 | HHI.FF ---
Face to Face Verification Diagnosis: (1) Intracranial mass (2) Expressive aphasia Speech Therapy Order: To Improve: Speech and communication skills Home Health Nursing Order: Wound care and dressing changes Nursing assessment with vital signs I have seen patient Rufino Aden on 10/15/16. My clinical findings support the need for the requested home health care services because: Deconditioned w/ increased weakness Impaired cognition/judgement I certify that my clinical findings support that this patient is homebound because: Post-op weakness Unsteady gait/balance Unable to use public transportation Henrik Coughlin Oct 15, 2016 09:58
[2016-10-15] MEDS ORDERED: HYDR-3535 PO (10:01)
[2016-10-15 11:18] VITALS: O2SAT 96
[2016-10-15] MEDS: RESP: ALBUTEROL 2.5 MG/3 ML NEB (PRN) NEB (11:18)
--- NOTE | 2016-10-15 11:38 | PD.ONC.PN ---
Subjective Subjective Remarks Afebrile overnight. Patient resting in chair next to bed. Still with mild headache. Objective Data Date Time Temp Pulse Resp B/P Pulse Ox O2 Delivery O2 Flow Rate FiO2 10/15/16 11:18 96 10/15/16 08:16 97.1 62 18 133/79 96 10/15/16 04:00 97.0 63 20 115/62 94 10/15/16 00:00 97.1 66 20 114/63 97 10/14/16 22:43 Room Air 10/14/16 20:00 98.2 73 24 143/72 93 10/14/16 20:00 93 Room Air 10/14/16 20:00 67 10/14/16 18:00 62 10/14/16 16:11 94 10/14/16 16:00 98.5 60 19 143/75 93 10/14/16 16:00 60 10/14/16 14:00 72 10/14/16 12:00 98.2 60 19 138/70 93 10/14/16 12:00 60 Result Diagram: 10/11/16 1524 10/11/16 1524 Administered Medications Medications (Trade) Dose Ordered Sig/Ciera Route PRN Reason Start Time Stop Time Status Last Admin Dose Admin Acyclovir (Zovirax) 800 mg BID PO 10/10/16 21:00 10/15/16 08:36 Montelukast Sodium (Singulair) 10 mg HS PO 10/10/16 21:00 10/14/16 20:17 Pantoprazole Sodium (Protonix) 20 mg DAILY PO 10/11/16 09:00 10/15/16 08:36 Budesonide/ Formoterol Fumarate (Symbicort 160-4.5 Inh) 2 puff BID INH 10/10/16 21:00 10/15/16 08:39 Sodium Chloride (NS Flush) 2 ml BID IV FLUSH 10/10/16 21:00 10/15/16 08:37 Levetriacetam (Keppra) 500 mg Q12HR PO 10/10/16 21:00 10/15/16 08:36 Docusate Sodium (Colace) 100 mg BID PO 10/10/16 21:00 10/15/16 08:36 Acetaminophen/ Hydrocodone Bitart ([place] 10-325 Mg) 1 tab Q4H PRN PO PAIN SCALE 1 TO 5 10/10/16 16:15 10/13/16 02:47 Morphine Sulfate (Morphine Inj) 2 mg Q2H PRN IV breakthrough pain> 6 10/10/16 16:15 10/13/16 13:51 Dexamethasone Sodium Phosphate (Decadron Inj) 4 mg Q6H IV 10/11/16 00:00 10/15/16 06:35 Objective Remarks GENERAL: Middle aged male upright in bed in nad. SKIN: Warm and dry. HEAD: Normocephalic. EYES: No injection or drainage. NECK: Supple, trachea midline. CARDIOVASCULAR: Regular rate and rhythm RESPIRATORY: inspiratory and expiratory wheeze. GASTROINTESTINAL: Abdomen soft, non-tender, nondistended. EXTREMITIES: No cyanosis NEUROLOGICAL: No obvious focal deficit. Awake, alert, and oriented x3. Assessment/Plan Problem List: (1) Intracranial mass Status: Acute Plan: 10/15: patient could be discharged and follow up in clinic for pathology results from oncology perspective. fs faxed to new patient referrals. --glioma vs infection --s/p resection Assessment 66y/o male with left frontotemporoparietal lobe mass s/p craniotomy and resection of the brain mass. Frozen section was not conclusive, either being glioma as well as infection. The pathology report is still pending h/o Asthma. Gastroesophageal reflux disease. Eczema. shingles. Cataract. Attending Statement no new c/o Path is pending. OK to d/c FU as outpt Sandra Turner Oct 15, 2016 11:38 Simon Aguirre MD Oct 17, 2016 16:38
== END 2016-10-15 16:30 | disposition home or self-care (01) | DRG 26 ==
LOC: HOR 14:26 → NEDA 16:03 → N03A 18:38 → N03B 10-11 17:10 → N05B 10-14 21:49
PROVIDERS: ADMIT Neurological Surgery; ATTEND Neurological Surgery
PROC: 00B70ZX Excision of Cerebral Hemisphere, Open Approach, Diagnostic (ICD-10-PCS; principal; 2016-10-11 12:26)
DX: G93.9 Disorder of brain, unspecified (principal); R47.01 Aphasia; B02.9 Zoster without complications; F17.210 Nicotine dependence, cigarettes, uncomplicated; J45.909 Unspecified asthma, uncomplicated; K21.9 Gastro-esophageal reflux disease without esophagitis; L30.9 Dermatitis, unspecified; Z79.82 Long term (current) use of aspirin
CPT/HCPCS: 70450; 71260; 74177; 80048; 81001; 85025; 85027; 85610; 85730; 86850; 86900; 86901; 87015; 87070; 87102; 87116; 87176; 87205; 87206; 87641; 88307; 88333; 93005; 94640; 94664; C1713; J1100; J1580; J1953; J2150; J2250; J2270; J2370; J2405; J2710; J3010; J3370; J3480; J7050; J7613; Q9967

== ENCOUNTER 2016-10-24 07:43 | Inpatient (IN) | payer OTHER ==
--- NOTE | 2016-10-23 18:27 | MH ---
cc: ADRIANA MURO M.D. DATE OF ADMISSION 10/24/2016 ADMISSION DIAGNOSIS Subgaleal fluid collection, possible infection. HISTORY OF PRESENT ILLNESS This is a 66-year-old male who has undergone a left frontotemporal parietal craniotomy for resection of a mass on October 11, 2016. He did well postoperatively with improvement in his expressive aphasia and his activity status was increasing, he was discharged home. He followed up on 10/21/2016 for staple removal. The incision was clean and dry without any signs of erythema or drainage. The patient states that he was doing well without any significant headaches other than mild incisional soreness. He has been on Decadron 4 mg q.6h after his surgery and he has started a weaning protocol at the 10/21/2016 visit and as of 10/24/2016 he will be on 4 mg b.i.d. He states yesterday he started noticing in the afternoon what he thought was blood draining from the incision. He called the office in the evening and was recommended to come in for an incision check. I saw him for an incision check and noted that he had drainage from the inferior aspect of the left craniotomy incision just anterior to his ear with gentle palpation of the craniotomy flap. He also appeared to have a subgaleal / subcutaneous fluid collection under his craniotomy flap that felt superficial. The fluid that expressed through gentle palpation was a brownish blood-tinged fluid. The patient denies any fever or chills. There is no erythema or warmth of the incision or open wounds and the skin is well approximated. PAST MEDICAL HISTORY Significant for: 1. Asthma. 2. Gastroesophageal reflux disease. 3. Eczema. 4. Shingles involving the left side of his face, neck and chest that he has recently finished acyclovir for. 5. Cataracts. 6. Brain mass that has been sent out for a second opinion. CURRENT MEDICATIONS He is takin. Nexium 20 mg daily. 2. Albuterol inhaler one puff q.4h as needed. 3. Advair Diskus one puff twice a day. 4. Montelukast 10 milligrams q.h.s. 5. Decadron 4 milligrams p.o. twice a day. 6. Keppra 500 mg p.o. b.i.d. ALLERGIES HE IS ALLERGIC TO PENICILLIN. 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 He is . He does not have any siblings or children. He states he is not currently smoking, however, he smoked 20 years ago. He occasionally drinks alcohol. REVIEW OF SYSTEMS GENERAL: He denies any fever or chills. EARS, NOSE, AND THROAT: No pharyngitis, exudates or bloody drainage from his nose. CARDIOVASCULAR: He denies any chest pain or palpitations RESPIRATORY: No cough or shortness of breath. GASTROINTESTINAL: No nausea, vomiting, abdominal pain. MUSCULOSKELETAL: No muscle weakness or difficulty with gait. NEUROLOGIC: No difficulty with vision or paresthesias in his face or extremities. He has mild to sometimes moderate expressive aphasia. INTEGUMENT: Positive for drainage from the inferior aspect of his craniotomy incision. He also has a resolving shingles rash involving his left upper chest and neck. PSYCHIATRIC: No anxiety or depression symptoms. ENDOCRINE: No polyuria, polydipsia. HEMATOLOGIC: No bruising or bleeding tendencies. PHYSICAL EXAMINATION HEAD: He has a healing left craniotomy incision without any obvious signs of infection such as erythema, warmth, tenderness to palpation. He does have swelling in the left side of his head that feels like a subcutaneous / subgaleal fluid collection. With gentle palpation of the fluid collection he has some drainage at the inferior aspect of the incision just anterior to his ear. LUNGS: Clear to auscultation bilaterally. HEART: Regular rate and rhythm, normal S1-S2. ABDOMEN: Soft, nontender. Positive bowel sounds. SKIN: Reveals findings noted above. MUSCULOSKELETAL: He has 5/5 strength in the upper and lower extremities. He ambulates without any assistive device. NEUROLOGIC: He is awake, alert, oriented. Pupils are equal and reactive. Speech is clear. He does have mild to moderate expressive aphasia. Sensation is intact to light touch. Pupils are equal, 3 mm bilaterally reactive bilaterally. IMPRESSION A 66-year-old male who underwent a left frontotemporal parietal craniotomy for resection of mass on 10/11/2016. The pathology was sent out for a second opinion and is still pending. Yesterday the patient started to notice bloody drainage in the afternoon and did not call the office until after hours but was advised to come in for followup today. He was seen and the drainage appears to be more of a brownish color with blood tinge that is seen with gentle palpation of the subgaleal fluid collection at his craniotomy site. The patient currently is not having any fevers or chills and the incision does not have any erythema, open wounds or warmth to palpation. PLAN We have recommended that the patient undergo an incision and debridement of his craniotomy incision so that cultures can be obtained. The craniotomy site will also be irrigated and subgaleal fluid collection will be drained. The procedure was discussed in detail with the patient and his . Once cultures have been obtained if it does reveal infection then he will be placed on appropriate antibiotics. The patient may require postoperative drain to be placed and may be in the hospital for a few days for this and the antibiotics prior to discharge, and he understands the plan. This will be undertaken tomorrow on an urgent basis. If the patient develops any fever or chills or new neurological symptoms such as headache, nausea, vomiting, worsening speech, weakness, sensory deficits, visual changes he will go to the emergency room for further evaluation. Otherwise he is scheduled for surgery tomorrow. DICTATED BY: Henrik Coughlin PA-C MD SAKSHI Blue/EFRAÍN /5:39 PM /6:00 PM
[2016-10-24] VITALS: BP 124/64; PULSE 67; RESP 20; TEMP 97.8; O2SAT 96
[~2016-10-24] VITALS: Ht 172.7 cm; Wt 82.0 kg
[~2016-10-24 07:43] MED LIST: ACYC-101 PO; ADVA250A INH; DEXA4TAB PO; GELFOAM SIZE 100 ONE; GENTAMICIN SULFATE 80 MG/2 ML VIAL ONE; HYDR-3535 PO; HYDR-3583 PO; LEVE500 PO; MONT10TA4 PO; NEXI20CA PO; THROMBIN (TOPICAL) 5,000 UNIT VIAL ONE; VENTAER INH
[2016-10-24 08:43] LABS: AUTOMATED NEUTROPHIL # 17.6 TH/MM3 (1.8-7.7); BASOPHIL % 0.2 % (0.0-2.0); HEMATOCRIT 43.5 % (39.0-51.0); LYMPH % 8.5 % (9.0-44.0); LYMPHOCYTE # 1.7 TH/MM3 (1.0-4.8); MEAN CELL VOLUME 92.1 FL (80.0-100.0); MEAN CORPUSCULAR HEMOGLOBIN 31.1 PG (27.0-34.0); MEAN CORPUSCULAR HGB CONC 33.7 % (32.0-36.0); NEUT % 87.3 % (16.0-70.0); PLATELET COUNT 384 TH/MM3 (150-450); RED BLOOD COUNT 4.73 MIL/MM3 (4.50-5.90); RED CELL DISTRIBUTION WIDTH 13.6 % (11.6-17.2); WHITE BLOOD COUNT 20.2 TH/MM3 (4.0-11.0)
[2016-10-24 08:45] LABS: HEMO FLAGS AUTO DIFF
[2016-10-24] MEDS ORDERED: SYMB160A INH (08:45)
[2016-10-24 08:50] LABS: PROTHROMBIN TIME - PATIENT 10.6 SEC (9.8-11.6)
[2016-10-24] MEDS ORDERED: PROPOFOL 200 MG/20 ML AMP IV ONE (08:54)
[2016-10-24] MEDS ORDERED: ePHEDrine/NS 25 MG/5 ML SYR IV ONE (08:54)
[2016-10-24] MEDS ORDERED: ONDANSETRON HCL 4 MG/2 ML VIAL IV PUSH ONE (08:54)
[2016-10-24] MEDS ORDERED: NEOSTIGMINE 3 MG/3 ML SYR IV ONE (08:54)
[2016-10-24] MEDS ORDERED: ASPI81CH CHEW (08:57)
[2016-10-24] MEDS ORDERED: SODIUM CHLOR 0.9% 1000 ML INJ 1,000 ML IV SCH (09:00)
[2016-10-24] MEDS ORDERED: LACTATED RINGER'S 1000 ML IV PRN (09:00)
[2016-10-24] MEDS ORDERED: METOPROLOL TARTRATE 25 MG TAB PO PRN (09:00)
[2016-10-24] MEDS ORDERED: SODIUM CHLORID 0.9% 500 ML IV PRN (09:00)
[2016-10-24] MEDS ORDERED: POVIDONE IODINE 5% (ANTISEPSIS KIT) 4 APPLICATIONS EACH NARE PRN (09:00)
[2016-10-24] MEDS ORDERED: INSULIN HUMAN REGULAR 1,000 UNITS/10 ML VIAL SQ PRN (09:00)
[2016-10-24] MEDS ORDERED: CHLORHEXIDINE GLUCONATE 2 % 1 PACK (2 CLOTHS) TOPICAL PRN (09:00)
[2016-10-24] MEDS ORDERED: VANCOMYCIN HCL 1000 MG ON-CALL/NS 250 ML IV SCH ×2 (09:00)
[2016-10-24 09:04] VITALS: BP 153/97; PULSE 62; RESP 18; TEMP 98.3; O2SAT 96
[2016-10-24 09:07] LABS: ANION GAP 12 MEQ/L (5-15); AST (GOT) 10 U/L (15-37); BICARBONATE 22.2 MEQ/L (21.0-32.0); BLOOD UREA NITROGEN 21 MG/DL (7-18); CHLORIDE 103 MEQ/L (98-107); GLOMERULAR FILTRATION RATE 79 ML/MIN (>89); POTASSIUM 4.1 MEQ/L (3.5-5.1); SODIUM (NA) 137 MEQ/L (136-145)
[2016-10-24 09:08] LABS: ALT (GPT) 21 U/L (12-78)
[2016-10-24 09:10] LABS: ALKALINE PHOSPHATASE 66 U/L (45-117); TOTAL BILIRUBIN ADULT 0.4 MG/DL (0.2-1.0)
[2016-10-24 09:30] LABS: MYELOCYTES 1 % (0-0); NEUTROPHIL # MANUAL DIFF 17.2 TH/MM3 (1.8-7.7); PLATELET ESTIMATE SMEAR NORMAL (NORMAL); PLATELET MORPHOLOGY NORMAL (NORMAL); POLYS (SEG NEUTROPHILS) 84 % (16-70); SCAN/DIFF FINAL DIFF MANUAL; WBC DIFF SAMPLE 100
[2016-10-24] MEDS ORDERED: FAMOTIDINE 20 MG/2 ML VIAL ONE (12:15)
[2016-10-24] MEDS ORDERED: MIDAZOLAM HCL 2 MG/2 ML VIAL ONE (12:15)
[2016-10-24] MEDS ORDERED: VANCOMYCIN HCL 1000 MG VIAL ONE (13:05)
[2016-10-24] MEDS ORDERED: ACETAMINOPHEN 325 MG TAB PO PRN (14:00)
[2016-10-24] MEDS ORDERED: cloNIDine HCL 0.1 MG TAB PO PRN (14:00)
[2016-10-24] MEDS ORDERED: ALUMINUM/MAGNESIUM/SIMETH 30 ML CUP PO PRN (14:00)
[2016-10-24] MEDS ORDERED: ALBUTEROL SULFATE 90 MCG/ACT HFA 8 GM INHALER INH PRN (14:00)
[2016-10-24] MEDS ORDERED: LORazepam 2 MG/ML VIAL IVP PRN (14:00)
[2016-10-24] MEDS ORDERED: RESP: ALBUTEROL 2.5 MG/3 ML NEB (PRN) NEB (14:00)
[2016-10-24] MEDS ORDERED: MENTHOL LOZENGE BUCCAL PRN (14:00)
[2016-10-24] MEDS ORDERED: MORPHINE SULFATE 4 MG/ML INJ IV PRN (14:00)
[2016-10-24] MEDS ORDERED: VANCOMYCIN INJ 1,000 MG in SODIUM CHLOR 0.9% 250 ML INJ 250 ML IV SCH (14:00)
[2016-10-24] MEDS ORDERED: ONDANSETRON HCL 4 MG/2 ML VIAL IV PRN (14:00)
[2016-10-24] MEDS ORDERED: Vancomycin Consult Pharmacy 1 EA OTHER SCH (14:00)
[2016-10-24] MEDS ORDERED: SODIUM CHLORIDE 0.9% FLUSH 10 ML FLUSH IV FLUSH PRN (14:00)
[2016-10-24] MEDS ORDERED: MAGNESIUM HYDROXIDE SUSP 30 ML CUP PO PRN (14:00)
[2016-10-24] MEDS ORDERED: CYCLOBENZAPRINE HCL 10 MG TAB PO PRN (14:00)
[2016-10-24] MEDS ORDERED: ACETAMINOPHEN/HYDROcodone 325 MG/10 MG TAB PO PRN ×2 (14:00)
[2016-10-24] MEDS ORDERED: DO NOT ADM ANY ANTICOAGULANT DRUGS PRN (14:10)
[2016-10-24] MEDS ORDERED: fentaNYL CITRATE 250 MCG/5 ML AMP ONE (14:47)
[2016-10-24 16:32] VITALS: BP 143/78; PULSE 51; RESP 18; TEMP 97.3; O2SAT 98
[2016-10-24] MEDS: NS + KCL 20 MEQ INJ 1,000 ML IV SCH (16:50)
[2016-10-24 17:08] VITALS: O2SAT 98
--- NOTE | 2016-10-24 17:59 | PD.OP ---
Operative Report Date of Surgery: Oct 24, 2016 Preoperative Diagnosis: Craniotomy wound infection with subgaleal temporal abscess Postoperative Diagnosis: Same Procedure: Left temporal scalp incision and debridement of the craniotomy site with the evacuation of subgaleal abscess with the temporalis muscle and fascia debridement Anesthesia: Gen. endotracheal by Seema Almanza Surgeon: Tong Head M.D. Casing Blower(s): Bridgett Gomez Operation and Findings: Following initiation of general endotracheal anesthesia patient had sequential compression devices were placed along with Reveles catheter. Head was turned 45 right side and secured in a horseshoe headrest. Previous left craniotomy incision site was shaved and prepped with the ChloraPrep and sterilely draped. Incision site was infiltrated with 0.5% Marcaine with epinephrine solution in the temporal area the incision incised. Brownish yellowish pus was noted in the subcutaneous location along with subgaleal area and mostly restriction of the temporal aspect extending inferiorly. He also had a recent herpes zoster shingles attack in the lower face and chest area. The pus muscle fascia sutures were removed and located abscess in this area also evacuated and debrided. I exposed to the skull and the cervical plates and did not identify any obvious infection. The area was then copiously irrigated with gentamicin solution and intraoperative specimens also sent for stat Gram stain and routine cultures. At this point a gram of vancomycin was administered intravenously. The scalp was then closed in a single layer using 2-0 Prolene vertical mattress stitches. A 7 mm subgaleal LESLEY drain was also placed prior to final closure exiting through a separate stab incision site and secured with a 2-0 silk tie. Estimated loss was about 5 cc. A sterile pressure dressing was then applied and the patient extubated and taken recovery room. Tong Head MD Oct 24, 2016 17:59
[2016-10-24 21:30] VITALS: BP 138/73; PULSE 65; RESP 18; TEMP 97.9; O2SAT 97
[2016-10-24] MEDS: SODIUM CHLORIDE 0.9% FLUSH 10 ML FLUSH IV FLUSH SCH (21:32)
[2016-10-24] MEDS: BUDESONIDE-FORMOTEROL 160/4.5 MCG INHALER INH SCH (21:32)
[2016-10-24] MEDS: DOCUSATE SODIUM 100 MG CAP PO SCH (21:32)
[2016-10-24] MEDS: MONTELUKAST SODIUM 10 MG TAB PO SCH (21:33)
[2016-10-24] MEDS: DEXAMETHASONE 4 MG TAB PO SCH (21:35)
[2016-10-24] MEDS: levETIRAcetam 500 MG TAB PO SCH (21:35)
--- NOTE | 2016-10-24 21:52 | MB ---
cc: NOEL BURTON MD, ROHIT K. M.D. DATE OF CONSULTATION: 10/24/[address] Tong Head. REASON FOR CONSULTATION Subgaleal abscess. Craniotomy wound infection. HISTORY OF PRESENT ILLNESS This is a 66-year-old white male who is status post surgery for resection of a mass at the left frontotemporoparietal area of the brain. The patient underwent craniotomy for resection of the mass on October 11, 2016. Two days ago he noticed drainage coming from the incision on the area behind the left ear at the incision. He was having initially clear serous drainage coming from there and then slightly brown drainage. This was seen by the neurosurgeon for an incision check and he was noted to have fluid coming out from this location of the incision on palpation of the craniotomy flap. The patient had no fever or headache or other symptoms. He was brought into the hospital and taken to surgery and he underwent incision and debridement of the left craniotomy incision and a culture was taken. The Gram stain from the fluid shows gram-positive cocci in pairs. The patient is in no acute distress. He is awake and alert. He denies nausea, vomiting or other symptoms. He states that after the surgery his speech was improving and he was having problems with his handwriting which has improved as well. His white count is 20.2. He denies fevers or chills. Pathology from the original surgery is pending. PAST MEDICAL HISTORY 1. Asthma. 2. Gastroesophageal reflux disease. 3. Shingles involving the left side of the face and neck and chest treated with Acyclovir. 4. Cataracts. 5. Eczema. ALLERGIES PENICILLIN. MEDICATIONS 1. Vancomycin. 2. Aspirin. 3. Protonix. 4. Decadron. 5. Keppra. 6. Singular. 7. Colace. 8. Colton 10 p.r.n. SOCIAL HISTORY The patient is . 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 No tobacco, no alcohol and no illicit drugs. FAMILY HISTORY Noncontributory. REVIEW OF SYSTEMS Negative on 10-point review. PHYSICAL EXAMINATION GENERAL: This is a pleasant, well-developed male who is in no acute distress. He is awake and alert and oriented. VITAL SIGNS: Temperature 97.3, BP 143/78, respirations 18, heart rate 51. HEENT: The head has a surgical incision at the left side which extends from behind the left ear and wraps in a C configuration and up the left frontoparietal area of the head towards the front left. There is a drainage catheter which exits the lower aspect of the incision. It has approximately 15 cc in the drainage bulb. The extraocular movements are grossly intact. Pupils reactive to light. No icterus. Oropharynx - no visible lesions. NECK: Supple without adenopathy. LUNGS: Clear breath sounds. HEART: Regular, S1 and S2 without murmurs, rubs or gallops. ABDOMEN: Bowel sounds present, soft, no tenderness appreciated. RECTAL: Not performed. EXTREMITIES: No clubbing or cyanosis or edema. SKIN: No rash. NEUROLOGIC: Nonfocal. PSYCHIATRIC: The patient calm and cooperative. LABORATORY DATA WBC 20.2, platelets 384, 87% neutrophils, hemoglobin 14.7, creatinine 0.96, estimated GFR 79, sodium 137. IMPRESSION Craniotomy wound infection. Infected subgaleal fluid postop. The patient status post craniotomy flap and resection of brain mass. RECOMMENDATIONS 1. Continue vancomycin since the patient is allergic to penicillin. 2. Monitor the wound culture. 3. Monitor clinical status and white blood cell count. Given the gram-positive cocci and the Gram stain, he very likely has infection due to Staph or Strep bacteria. Once the culture becomes available, further recommendations will be given. I would recommend giving IV antibiotics via a PICC line. This will be determined hopefully in the next day or two once we get the results back from the culture. Thank you for this consultation. Further recommendations will be made on followup. Noel Burton MD FD/GIULIANO /5:05 PM /9:24 PM
[2016-10-25] VITALS: BP 123/69; PULSE 68; RESP 20; TEMP 97.6; O2SAT 96
[2016-10-25] MEDS: VANCOMYCIN INJ 1,250 MG in SODIUM CHLOR 0.9% 250 ML INJ 250 ML IV SCH ×2 (00:03→13:48)
[2016-10-25] MEDS: NS + KCL 20 MEQ INJ 1,000 ML IV SCH ×2 (00:03→09:48)
[2016-10-25 04:00] VITALS: BP 123/69; PULSE 68; RESP 20; TEMP 97.6; O2SAT 96
[2016-10-25 07:41] LABS: AUTOMATED NEUTROPHIL # 13.4 TH/MM3 (1.8-7.7); HEMATOCRIT 40.4 % (39.0-51.0); HEMO FLAGS DIFF FINAL; LYMPH % 11.3 % (9.0-44.0); LYMPHOCYTE # 1.8 TH/MM3 (1.0-4.8); MEAN CELL VOLUME 92.5 FL (80.0-100.0); MEAN CORPUSCULAR HEMOGLOBIN 30.8 PG (27.0-34.0); MEAN CORPUSCULAR HGB CONC 33.3 % (32.0-36.0); MONO % 5.2 % (0.0-8.0); NEUT % 83.5 % (16.0-70.0); PLATELET COUNT 316 TH/MM3 (150-450); RED BLOOD COUNT 4.36 MIL/MM3 (4.50-5.90); RED CELL DISTRIBUTION WIDTH 13.8 % (11.6-17.2); WHITE BLOOD COUNT 16.1 TH/MM3 (4.0-11.0)
[2016-10-25 08:00] VITALS: BP 113/69; PULSE 70; RESP 18; O2SAT 96
[2016-10-25 08:22] LABS: BICARBONATE 26.2 MEQ/L (21.0-32.0); MAGNESIUM 2.3 MG/DL (1.5-2.5); POTASSIUM 4.4 MEQ/L (3.5-5.1)
[2016-10-25] MEDS: SODIUM CHLORIDE 0.9% FLUSH 10 ML FLUSH IV FLUSH SCH ×2 (09:00→21:14)
[2016-10-25] MEDS: PANTOPRAZOLE SOD 20 MG DELAYED RELEASE TAB PO SCH (09:24)
[2016-10-25] MEDS: DOCUSATE SODIUM 100 MG CAP PO SCH ×2 (09:24→21:00)
[2016-10-25] MEDS: ASPIRIN 81 MG CHEW TAB CHEW SCH (09:25)
[2016-10-25] MEDS: levETIRAcetam 500 MG TAB PO SCH ×2 (09:25→21:13)
[2016-10-25] MEDS: DEXAMETHASONE 4 MG TAB PO SCH ×2 (09:25→21:14)
[2016-10-25] MEDS: BUDESONIDE-FORMOTEROL 160/4.5 MCG INHALER INH SCH ×2 (09:27→21:15)
[2016-10-25 12:00] VITALS: BP 114/68; PULSE 60; RESP 20; TEMP 97.8; O2SAT 96
--- NOTE | 2016-10-25 14:08 | HHI.NSPN ---
(Henrik Coughlin) History Chief Complaint: Mild incisional discomfort (Henrik Coughlin) Interval History 10/25/16: Pt underwent an incision and debridement of left craniotomy incision on 10/24/16: ASAEL drain in place draining well. He has incisional discomfort. Difficulty sleeping. He states he ambulates and feels steady but would like to work with PT. No nausea or vomiting. (Henrik Coughlin) Review of Systems General: Negative for: fever, chills, insomnia Respiratory: Negative for: shortness of breath, cough, sputum Cardiovascular: Negative for: chest pain Gastrointestinal: Negative for: nausea, vomitting, diarrhea, constipation ( Henrik Coughlin) Exam Results Vital Signs Date Time Temp Pulse Resp B/P Pulse Ox O2 Delivery O2 Flow Rate FiO2 10/25/16 12:00 97.8 60 20 114/68 96 10/24/16 17:08 Nasal Cannula Intake and Output 10/24/16 10/24/16 10/24/16 07:59 15:59 23:59 Intake Total 100 ml Output Total 925 ml Balance 100 ml -925 ml (Henrik Coughlin) Physical Examination Resp: CTA bilaterally Heart: NSR no murmurs Abd: Soft positive bs Skin: Incision dry. ASAEL drain in place. Bandage in place. Muscle: Moves all 4 extremities well. Neuro: Pt awake and alert. Follows commands well. Mild to moderate expressive aphasia. Face symmetric. (Henrik Coughlin) Lab, Micro, Other Results Laboratory Tests Test 10/25/16 06:17 White Blood Count 16.1 TH/MM3 Red Blood Count 4.36 MIL/MM3 Hemoglobin 13.4 GM/DL Hematocrit 40.4 % Mean Corpuscular Volume 92.5 FL Mean Corpuscular Hemoglobin 30.8 PG Mean Corpuscular Hemoglobin 33.3 % Concent Red Cell Distribution Width 13.8 % Platelet Count 316 TH/MM3 Mean Platelet Volume 7.9 FL Neutrophils (%) (Auto) 83.5 % Lymphocytes (%) (Auto) 11.3 % Monocytes (%) (Auto) 5.2 % Eosinophils (%) (Auto) 0.0 % Basophils (%) (Auto) 0.0 % Neutrophils # (Auto) 13.4 TH/MM3 Lymphocytes # (Auto) 1.8 TH/MM3 Monocytes # (Auto) 0.8 TH/MM3 Eosinophils # (Auto) 0.0 TH/MM3 Basophils # (Auto) 0.0 TH/MM3 CBC Comment DIFF FINAL Differential Comment Sodium Level 137 MEQ/L Potassium Level 4.4 MEQ/L Chloride Level 103 MEQ/L Carbon Dioxide Level 26.2 MEQ/L Anion Gap 8 MEQ/L Blood Urea Nitrogen 18 MG/DL Creatinine 0.88 MG/DL Estimat Glomerular Filtration 87 ML/MIN Rate Random Glucose 105 MG/DL Calcium Level 8.2 MG/DL Magnesium Level 2.3 MG/DL 10/24/16 10/24/16 10/25/16 14:59 22:59 06:59 Intake Total 100 ml Output Total 925 ml 350 ml Balance -825 ml -350 ml Intake IV Total 100 ml Output Urine Total 900 ml 325 ml Drainage Total 25 ml 25 ml # Voids 1 (Henrik Coughlin) Medical Decision Making Impression and Plan A: 66 y/o M s/p left craniotomy for resection of mass 10/11. Pathology has come back today GBM and I have discussed with pts . s/p I/D of left craniotomy incision 10/24 P: Continue with antibiotics continue with neuro checks consult PT/Speech. (Henrik Coughlin) Attending Statement The exam, history, and the medical decision-making described in the above note were completed with the assistance of the mid-level provider. I reviewed and agree with the findings presented. I attest that I had a [id number] encounter with the patient on the same day, and personally performed and documented my assessment and findings in the medical record. d/c asael drain in am. Anticipate discharge in next 1-2 days with home anitbiotics as per ID. ( Tong Head MD) Henrik Coughlin Oct 25, 2016 14:08 Tong Head MD Oct 25, 2016 18:59
[2016-10-25 16:00] VITALS: BP 116/62; PULSE 69; RESP 20; TEMP 98.1; O2SAT 95
--- NOTE | 2016-10-25 16:24 | HHI.IDPN ---
Note Infectious Disease Note Patient feels okay. No complaints. Drainage catheter at scalp has drainage. Afebrile. Wound culture has staph preliminary. Pathology from the original surgery shows Glioblastoma. PAST MEDICAL HISTORY 1. Asthma. 2. Gastroesophageal reflux disease. 3. Shingles involving the left side of the face and neck and chest treated with Acyclovir. 4. Cataracts. 5. Eczema. ALLERGIES PENICILLIN. Current Medications Medications (Trade) Dose Ordered Sig/Ciera Route PRN Reason Start Time Stop Time Status Last Admin Dose Admin Albuterol Sulfate (Proair Hfa Inh) 1 puff Q4H PRN INH SHORTNESS OF BREATH 10/24/16 14:00 Aspirin (Aspirin Chew) 81 mg DAILY CHEW 10/25/16 09:00 10/25/16 09:25 Budesonide/ Formoterol Fumarate (Symbicort 160-4.5 Inh) 2 puff Q12HR INH 10/24/16 21:00 10/25/16 09:27 Dexamethasone (Decadron) 4 mg BID PO 10/24/16 21:00 10/25/16 09:25 Levetriacetam (Keppra) 500 mg Q12HR PO 10/24/16 21:00 10/25/16 09:25 Montelukast Sodium (Singulair) 10 mg HS PO 10/24/16 21:00 10/24/16 21:33 Pantoprazole Sodium (Protonix) 20 mg DAILY PO 10/25/16 09:00 10/25/16 09:24 Sodium Chloride (NS Flush) 2 ml UNSCH PRN IV FLUSH FLUSH AFTER USING IV ACCESS 10/24/16 14:00 Sodium Chloride (NS Flush) 2 ml BID IV FLUSH 10/24/16 21:00 10/24/16 21:32 Lorazepam (Ativan Inj) 1 mg Q1H PRN IVP SEIZURES 10/24/16 14:00 Docusate Sodium (Colace) 100 mg BID PO 10/24/16 21:00 10/25/16 09:24 Magnesium Hydroxide (Milk Of Magnesia Liq) 30 ml DAILY PRN PO CONSTIPATION 10/24/16 14:00 Al Hydrox/Mg Hydrox/Simethicone (Mag-Al Plus Susp Liq) 30 ml Q6H PRN PO DYSPEPSIA 10/24/16 14:00 Ondansetron HCl (Zofran Inj) 4 mg Q6H PRN IV NAUSEA OR VOMITING 10/24/16 14:00 Acetaminophen/ Hydrocodone Bitart ([place] 10-325 Mg) 1 tab Q4H PRN PO PAIN SCALE 1 TO 5 10/24/16 14:00 Acetaminophen/ Hydrocodone Bitart ([place] 10-325 Mg) 2 tab Q4H PRN PO PAIN SCALE 6 TO 10 10/24/16 14:00 Morphine Sulfate (Morphine Inj) 2 mg Q2H PRN IV breakthrough pain> 6 10/24/16 14:00 Cyclobenzaprine HCl (Flexeril) 10 mg Q8H PRN PO MUSCLE SPASM 10/24/16 14:00 Clonidine (Catapres) 0.1 mg Q6H PRN PO SYS BP GREATER THAN 170 MMHG 10/24/16 14:00 Acetaminophen (Tylenol) 650 mg Q4H PRN PO TEMPERATURE > 101.5 F 10/24/16 14:00 Menthol ([place]urgis Litzy) 1 lozenge UNSCH PRN BUCCAL SORE THROAT 10/24/16 14:00 Zolpidem Tartrate 5 mg 5 mg HS PRN PO INSOMNIA 10/24/16 14:00 Pharmacy Profile Note 0 ml @ 0 mls/hr UNSCH OTHER 10/24/16 14:00 Vancomycin HCl/ Sodium Chloride (Vancomycin Inj/ NS 250 ml Inj) 262.5 ml @ 250 mls/hr Q12H IV 10/25/16 01:00 10/25/16 13:48 Miscellaneous Information SPECIFIC LAB TO BE OLE... ONCE ONCE .XX 10/26/16 00:45 10/26/16 00:46 OBJECTIVE Vital Signs Date Time Temp Pulse Resp B/P Pulse Ox O2 Delivery O2 Flow Rate FiO2 10/25/16 16:00 98.1 69 20 116/62 95 10/25/16 12:00 97.8 60 20 114/68 96 10/25/16 08:00 70 18 113/69 96 10/25/16 04:00 97.6 68 20 123/69 96 10/25/16 00:00 97.6 68 20 123/69 96 10/24/16 21:30 97.9 65 18 138/73 97 10/24/16 17:08 98 Nasal Cannula 10/24/16 16:32 97.3 51 18 143/78 98 7/20/17 7/20/17 7/21/17 15:00 23:00 07:00 Intake Total 100 ml Output Total 925 ml 350 ml Balance 100 ml -925 ml -350 ml Intake IV Total 100 ml Output Urine Total 900 ml 325 ml Drainage Total 25 ml 25 ml # Voids 1 Laboratory Tests Test 10/24/16 10/25/16 06:25 06:17 White Blood Count 20.2 TH/MM3 16.1 TH/MM3 Red Blood Count 4.73 MIL/MM3 4.36 MIL/MM3 Hemoglobin 14.7 GM/DL 13.4 GM/DL Hematocrit 43.5 % 40.4 % Mean Corpuscular Volume 92.1 FL 92.5 FL Mean Corpuscular Hemoglobin 31.1 PG 30.8 PG Mean Corpuscular Hemoglobin 33.7 % 33.3 % Concent Red Cell Distribution Width 13.6 % 13.8 % Platelet Count 384 TH/MM3 316 TH/MM3 Mean Platelet Volume 7.4 FL 7.9 FL Neutrophils (%) (Auto) 87.3 % 83.5 % Lymphocytes (%) (Auto) 8.5 % 11.3 % Monocytes (%) (Auto) 4.0 % 5.2 % Eosinophils (%) (Auto) 0.0 % 0.0 % Basophils (%) (Auto) 0.2 % 0.0 % Neutrophils # (Auto) 17.6 TH/MM3 13.4 TH/MM3 Lymphocytes # (Auto) 1.7 TH/MM3 1.8 TH/MM3 Monocytes # (Auto) 0.8 TH/MM3 0.8 TH/MM3 Eosinophils # (Auto) 0.0 TH/MM3 0.0 TH/MM3 Basophils # (Auto) 0.0 TH/MM3 0.0 TH/MM3 CBC Comment AUTO DIFF DIFF FINAL Differential Total Cells 100 Counted Neutrophils % (Manual) 84 % Lymphocytes % 10 % Monocytes % 5 % Neutrophils # (Manual) 17.2 TH/MM3 Myelocytes 1 % Differential Comment FINAL DIFF MANUAL Platelet Estimate NORMAL Platelet Morphology Comment NORMAL Red Cell Morphology Comment NORMAL Laboratory Tests Test 10/24/16 10/25/16 06:25 06:17 Sodium Level 137 MEQ/L 137 MEQ/L Potassium Level 4.1 MEQ/L 4.4 MEQ/L Chloride Level 103 MEQ/L 103 MEQ/L Carbon Dioxide Level 22.2 MEQ/L 26.2 MEQ/L Anion Gap 12 MEQ/L 8 MEQ/L Blood Urea Nitrogen 21 MG/DL 18 MG/DL Creatinine 0.96 MG/DL 0.88 MG/DL Estimat Glomerular Filtration 79 ML/MIN 87 ML/MIN Rate Random Glucose 129 MG/DL 105 MG/DL Calcium Level 8.8 MG/DL 8.2 MG/DL Total Bilirubin 0.4 MG/DL Aspartate Amino Transf 10 U/L (AST/SGOT) Alanine Aminotransferase 21 U/L (ALT/SGPT) Alkaline Phosphatase 66 U/L Total Protein 6.7 GM/DL Albumin 3.1 GM/DL Magnesium Level 2.3 MG/DL Microbiology Date/Time Procedure Status Source Growth 10/24/16 13:24 Gram Stain - Final Resulted Wound Head 10/24/16 13:24 Wound Culture - Preliminary Resulted Staphylococcus Aureus 10/24/16 13:24 Gram Stain - Final Resulted Wound Other 10/24/16 13:24 Wound Culture - Preliminary Resulted Staphylococcus Aureus PHYSICAL EXAMINATION GENERAL: No acute distress. Awake and alert and oriented. HEENT: The head has a surgical incision at the left side which extends from behind the left ear and wraps in a C configuration and up the left frontoparietal area of the head towards the front left. (+) drainage via catheter. Extraocular movements are grossly intact. Pupils reactive to light. No icterus. Oropharynx - no visible lesions. NECK: Supple, No adenopathy. LUNGS: Clear breath sounds. HEART: Regular, S1 and S2 without murmurs, rubs or gallops. ABDOMEN: Bowel sounds present, soft, no tenderness appreciated. EXTREMITIES: No clubbing or cyanosis or edema. SKIN: No rash. NEUROLOGIC: Nonfocal. PSYCHIATRIC: The patient calm and cooperative. IMPRESSION Craniotomy wound infection. Infected subgaleal fluid postop. Prelim culture Staph aureus. Status post craniotomy flap and resection of brain mass. Leukocytosis trending down. RECOMMENDATIONS 1. Continue vancomycin since the patient is allergic to penicillin. 2. Monitor the wound culture sensitivity. 3. Follow clinical status. Noel Garcia MD Oct 25, 2016 16:24
[2016-10-25] MEDS ORDERED: Vancomycin Consult Pharmacy 1 EA OTHER SCH (16:30)
--- NOTE | 2016-10-25 17:50 | HHI.FF ---
Face to Face Verification Diagnosis: (1) Intracranial mass (2) Expressive aphasia Physical Therapy Order: Evaluate and Treat, Improve ambulation, Strength and gait training Speech Therapy Order: To Improve: Speech and communication skills Home Health Nursing Order: Wound care and dressing changes Nursing assessment with vital signs Instructions: Remove scalp rose on 11/04/16 I have seen patient Rufino Aden on 10/25/16. My clinical findings support the need for the requested home health care services because: Ltd mobility - disease progression Deconditioned w/ increased weakness Infection w/ risk of complications I certify that my clinical findings support that this patient is homebound because: Post-op weakness Unsteady gait/balance Unable to use public transportation Henrik Coughlin Oct 25, 2016 17:50
[2016-10-25 20:40] VITALS: BP 142/74; PULSE 72; RESP 17; TEMP 98.6; O2SAT 96
[2016-10-25] MEDS: MONTELUKAST SODIUM 10 MG TAB PO SCH (21:15)
[2016-10-26] VITALS (9 sets, daily range): BP systolic 122–140; BP diastolic 67–79; PULSE 52–80; RESP 18–20; TEMP 97.5–98.2; O2SAT 95–97
[2016-10-26] MEDS: VANCOMYCIN INJ 1,250 MG in SODIUM CHLOR 0.9% 250 ML INJ 250 ML IV SCH ×2 (00:39→13:07)
[2016-10-26] MEDS ORDERED: PHARMACY ORDERED LAB ONE (00:45)
[2016-10-26] MEDS: BUDESONIDE-FORMOTEROL 160/4.5 MCG INHALER INH SCH ×2 (09:00→22:30)
[2016-10-26] MEDS: DOCUSATE SODIUM 100 MG CAP PO SCH ×2 (09:00→22:31)
[2016-10-26] MEDS: ASPIRIN 81 MG CHEW TAB CHEW SCH (09:00)
[2016-10-26] MEDS: SODIUM CHLORIDE 0.9% FLUSH 10 ML FLUSH IV FLUSH SCH ×2 (09:12→22:30)
[2016-10-26] MEDS: PANTOPRAZOLE SOD 20 MG DELAYED RELEASE TAB PO SCH (09:13)
[2016-10-26] MEDS: levETIRAcetam 500 MG TAB PO SCH ×2 (09:14→22:31)
[2016-10-26] MEDS: DEXAMETHASONE 4 MG TAB PO SCH ×2 (09:15→22:31)
--- NOTE | 2016-10-26 16:51 | HHI.NSPN ---
(Aaron Onofre) History Chief Complaint: Slight strange feeling to forehead when head dressing came off (Aaron Onofre) Interval History 10/25/16: Pt underwent an incision and debridement of left craniotomy incision on 10/24/16: LESLEY drain in place draining well. He has incisional discomfort. Difficulty sleeping. He states he ambulates and feels steady but would like to work with PT. No nausea or vomiting. 10/26: Patient is doing well today. He states he had a slight strange feeling to the forehead when the dressing to his head was taken off earlier but he states it wasn't a headache. Otherwise he had no complaints. He states that he has been up walking without any problems. (Aaron Onofre) System Review Comments Constitutional: Patient denies any fever or chills. HEENT: Patient states a slightly strange feeling to the forehead when the dressing to his head was removed earlier. Respiratory: Patient denies any shortness of breath or productive cough. Cardiovascular: Patient denies any chest pain, palpitations or irregular heartbeat. Gastrointestinal: Patient denies any abdominal pain nausea, vomiting or incontinence of stool. Genitourinary: Patient denies any incontinence of urine. Musculoskeletal: Patient denies neck, back or extremity pain or extremity weakness. Neurologic: Patient denies any headache, dizziness, numbness or tingling. ( Aaron Onofre) Exam Results Vital Signs Date Time Temp Pulse Resp B/P Pulse Ox O2 Delivery O2 Flow Rate FiO2 10/26/16 16:00 97.9 80 18 127/79 96 10/26/16 10:51 21 10/24/16 17:08 Nasal Cannula Intake and Output 10/25/16 10/25/16 10/26/16 08:00 16:00 00:00 Intake Total 1050 ml Output Total 350 ml 25 ml Balance -350 ml 1025 ml (Aaron Onofre) Physical Examination GENERAL: Awake & alert watching TV and talking with , NAD, readily interacts , normal affect. HEENT: Normocephalic, healed left craniotomy incision, well approximated left shinto I&D surgical incision & left LESLEY drain insertion site. LESLEY drain to bulb suction w/serosanguinous drainage. PERRLA, EOMI. NECK: No JVD, trachea midline. MUSCULOSKELETAL: JAMES w/o difficulty, no evident deformity or clubbing. INTEGUMENTARY: Skin warm, dry & intact except for well-healed left craniotomy surgical incision, left shinto I&D surgical incision & left LESLEY drain insertion site w/o any evident drainage, erythema or streaking. No ulcerations, rashes or other lesions noted. NEUROLOGICAL: AAOx3 Speech clear & appropriate Follows commands w/o any difficulty Sensation intact to light touch to all extremities Motor strength 5/5 to all major flexion & extension muscle groups (Aaron Onofre) Medical Decision Making Impression and Plan Impression: 66 y/o M s/p left craniotomy for resection of mass 10/11. Pathology was GBM. s/p I/D of left craniotomy incision 10/24 Staph aureus from wound culture Patient doing well Plan: Continue with antibiotics Continue with neuro checks Consult PT/Speech D/C LESLEY drain Procedure: With the patient sitting in a chair I had him lean his head to the right and slightly forward. The suture retaining the drain in place was cut and removed without difficulty. The flat drain was gently pulled back and came out without any problem and appeared intact. Pressure was held over the site for a few minutes. No drainage was noted from the site and steri-strips were placed. Nursing then dressed the wound and drain insertion site. The patient tolerated the procedure and had been premedicated for it. Possible d/c home tomorrow once Infectious Disease makes final choice on abx ( Aaron Onofre) Attending Statement I have personally seen and examined the patient on the date of this note. Pertinent documentation and study results have been reviewed by the undersigned. I have personally developed the treatment plan and performed medical decision making. Agree with findings, exam, and treatment plan as noted above. Patient remains awake and alert. Minimal drain output Incision dry and intact Drain discontinued today (Doyle Babin MD) Aaron Onofre Oct 26, 2016 16:51 Doyle Babin MD Oct 26, 2016 23:10
[2016-10-26] MEDS: MONTELUKAST SODIUM 10 MG TAB PO SCH (22:31)
[2016-10-27 00:30] VITALS: BP 131/67; PULSE 70; RESP 18; TEMP 98.2; O2SAT 96
[2016-10-27] MEDS: VANCOMYCIN INJ 1,250 MG in SODIUM CHLOR 0.9% 250 ML INJ 250 ML IV SCH ×2 (01:02→13:31)
[2016-10-27 04:00] VITALS: BP 127/72; PULSE 64; RESP 16; TEMP 98.1; O2SAT 96
[2016-10-27 08:00] VITALS: BP 136/75; PULSE 84; RESP 18; TEMP 98; O2SAT 95
[2016-10-27] MEDS: ASPIRIN 81 MG CHEW TAB CHEW SCH (09:00)
[2016-10-27] MEDS: DOCUSATE SODIUM 100 MG CAP PO SCH ×2 (09:00→21:00)
[2016-10-27] MEDS: PANTOPRAZOLE SOD 20 MG DELAYED RELEASE TAB PO SCH (09:27)
[2016-10-27] MEDS: DEXAMETHASONE 4 MG TAB PO SCH ×2 (09:27→21:00)
[2016-10-27] MEDS: levETIRAcetam 500 MG TAB PO SCH ×2 (09:27→20:59)
[2016-10-27] MEDS: SODIUM CHLORIDE 0.9% FLUSH 10 ML FLUSH IV FLUSH SCH ×2 (09:28→21:01)
[2016-10-27] MEDS: BUDESONIDE-FORMOTEROL 160/4.5 MCG INHALER INH SCH ×2 (09:29→21:01)
[2016-10-27 12:00] VITALS: BP 146/71; PULSE 76; RESP 20; TEMP 98; O2SAT 91
--- NOTE | 2016-10-27 13:17 | HHI.NSPN ---
(Aaron Onofre) History Chief Complaint: Slight aching/soreness to incision area (Aaron Onofre) Interval History 10/25/16: Pt underwent an incision and debridement of left craniotomy incision on 10/24/16: LESLEY drain in place draining well. He has incisional discomfort. Difficulty sleeping. He states he ambulates and feels steady but would like to work with PT. No nausea or vomiting. 10/26: Patient is doing well today. He states he had a slight strange feeling to the forehead when the dressing to his head was taken off earlier but he states it wasn't a headache. Otherwise he had no complaints. He states that he has been up walking without any problems. 10/27: Patient is doing well and seen ambulating the halls. His only complaint is some soreness or aching to the incision site for the I&D. The LESLEY drain was discontinued yesterday. (Aaron Onofre) System Review Comments Constitutional: Patient denies any fever or chills. HEENT: Patient has some aching/soreness to the incision area. Respiratory: Patient denies any shortness of breath or productive cough. Cardiovascular: Patient denies any chest pain, palpitations or irregular heartbeat. Gastrointestinal: Patient denies any abdominal pain nausea, vomiting or incontinence of stool. Genitourinary: Patient denies any incontinence of urine. Musculoskeletal: Patient denies neck, back or extremity pain or extremity weakness. Neurologic: Patient denies any headache, dizziness, numbness or tingling. ( Aaron Onofre) Exam Results Vital Signs Date Time Temp Pulse Resp B/P Pulse Ox O2 Delivery O2 Flow Rate FiO2 10/27/16 12:00 98.0 76 20 146/71 91 10/26/16 10:51 21 10/24/16 17:08 Nasal Cannula Intake and Output 10/26/16 10/26/16 10/27/16 08:00 16:00 00:00 Intake Total 1350 ml Output Total 260 ml 25 ml Balance 1090 ml -25 ml (Aaron Onofre) Physical Examination GENERAL: Ambulating w/o difficulty, NAD, readily interacts, normal affect. HEENT: Normocephalic, healed left craniotomy incision, well approximated left anglican I&D surgical incision, left parietal LESLEY drain insertion site, all w/o any evident drainage, erythema or streaking. PERRLA, EOMI. NECK: No JVD, trachea midline. MUSCULOSKELETAL: JAMES w/o difficulty, no evident deformity or clubbing, gait steady. INTEGUMENTARY: Skin warm, dry & intact except for well-healed left craniotomy surgical incision, left anglican I&D surgical incision & left LESLEY drain insertion site w/o any evident drainage, erythema or streaking. No ulcerations, rashes or other lesions noted. NEUROLOGICAL: AAOx3 Speech clear & appropriate Follows commands w/o any difficulty Sensation intact to light touch to all extremities Motor strength 5/5 to all major flexion & extension muscle groups (Aaron Onofre) Medical Decision Making Impression and Plan Impression: 66 y/o M s/p left craniotomy for resection of mass 10/11. Pathology was GBM. s/p I/D of left craniotomy incision 10/24 Staph aureus from wound culture with multiple sensitivities Patient continues to do well and is neurologically intact Plan: Plan of care discussed with the patient and his Plan of care discussed with Nursing Continue with antibiotics Continue with neuro checks Continue PT & ST Patient is able to be discharged once Infectious Disease makes a final decision on antibiotics. (Aaron Onofre) Attending Statement I have personally seen and examined the patient on the date of this note. Pertinent documentation and study results have been reviewed by the undersigned. I have personally developed the treatment plan and performed medical decision making. Agree with findings, exam, and treatment plan as noted above. Discussed initial pathology results of GBM and general treatment options and prognosis with the patient and his at the request. 10/24/16 culture results with MSSA. Await final infectious disease recommendations regarding further outpatient therapy. Dressing is dry and intact He is stable at discharge from neurosurgical standpoint once infectious disease recommendations completed. (Doyle Babin MD) Aaron Onofre Oct 27, 2016 13:17 Doyle Babin MD Oct 27, 2016 15:02
[2016-10-27 16:00] VITALS: BP 124/65; PULSE 78; RESP 20; TEMP 98.1; O2SAT 96
[2016-10-27 20:00] VITALS: BP 112/56; PULSE 71; RESP 18; TEMP 98.1; O2SAT 96
[2016-10-27] MEDS: MONTELUKAST SODIUM 10 MG TAB PO SCH (21:00)
[2016-10-27] MEDS: ZOLPIDEM TARTRATE 5 MG TAB PO PRN (21:00)
[2016-10-28] VITALS: BP 118/72; PULSE 80; RESP 16; TEMP 98.4; O2SAT 96
[2016-10-28] MEDS: VANCOMYCIN INJ 1,500 MG in SODIUM CHLORID 0.9% 500 ML INJ 500 ML IV SCH ×2 (00:34→16:14)
[2016-10-28] MEDS: ZOLPIDEM TARTRATE 5 MG TAB PO PRN (02:39)
[2016-10-28 04:00] VITALS: BP 115/68; PULSE 70; RESP 20; TEMP 98.2; O2SAT 97
[2016-10-28 08:00] VITALS: BP 115/69; PULSE 68; RESP 18; TEMP 97.9; O2SAT 95
[2016-10-28] MEDS: ASPIRIN 81 MG CHEW TAB CHEW SCH (09:00)
[2016-10-28] MEDS: DOCUSATE SODIUM 100 MG CAP PO SCH (09:00)
[2016-10-28] MEDS: PANTOPRAZOLE SOD 20 MG DELAYED RELEASE TAB PO SCH (09:02)
[2016-10-28] MEDS: levETIRAcetam 500 MG TAB PO SCH (09:02)
[2016-10-28] MEDS: DEXAMETHASONE 4 MG TAB PO SCH (09:03)
[2016-10-28] MEDS: BUDESONIDE-FORMOTEROL 160/4.5 MCG INHALER INH SCH (09:04)
[2016-10-28] MEDS: SODIUM CHLORIDE 0.9% FLUSH 10 ML FLUSH IV FLUSH SCH (09:07)
[2016-10-28] MEDS ORDERED: PILL SPLITTER OTHER PRN (11:00)
--- NOTE | 2016-10-28 11:10 | HHI.FF ---
Infusion Therapy Location of Infusion Therapy: Home [facility] Care IV Infusion Order Patient Information Patient Weight 82 kg Diagnosis: Coded Allergies: Penicillin (Verified Allergy, Unknown, FAMILIAL; ANAPHYLACTIC FOR HIS MOTHER, 10/24/16) Administer Medication Vancomycin 1.5 grams IV q 12 hours Start Treatment: Oct 29, 2016 Stop Treatment: Nov 11, 2016 Additional Information Venous access: PICC Line Additional Instructions [x] Peripheral flush and dressing changes per protocol [x] Implanted port and central molding line operator: * Implanted port: 10 ml Normal Saline followed by 5 ml Heparin 100 units/ml Heparin flush after each use and monthly to maintain. [] May leave port accessed during therapy. [] May leave peripheral site accessed for duration of therapy. [x] If patient has SOB or respiratory distress, check oxygen saturation. If less than 90% or clinical signs of respiratory distress, administer oxygen at 2 L/min. via nasal cannula and notify physician. [x] Anaphylaxis/Reaction orders: * Stop infusion. * Keep IV line open with saline flush. * Notify physician. * Monitor vital signs every 15 minutes until symptoms resolve. * Check Oxygen saturation; Oxygen at 2 L/min. via nasal cannula if less than 90% or clinical signs of respiratory distress. * Administer diphenhydramine (Benadryl) 25 mg IV STAT, (unless patient has received as pre-med). May repeat once, if necessary. * Solu-Cortef 250 mg IVP over 30-60 seconds, use 100 mg vials for each dissolution. * Epinephrine (1mg/1 ml) 0.3 mg subcutaneously or IVP now with any signs of respiratory distress. * Check with physician for new additional pre-med orders if patient is re- challenged or re-treated. [x] May remove PICC line when treatment complete, after confirming with Physician. [x] If the patient is admitted to the hospital, the ED, or transferred via [facility] , complete transfer form including medication reconciliation order sheet. Laboratory Tests Weekly Labs: BMP, CBC w/diff, Vancomycin Trough Additional Information Vancomycin trough with am dose on 10/31/16. Follow up with Dr Estefania Hawk of Infectious Disease in 1 week. Noel Garcia MD Oct 28, 2016 11:10
--- NOTE | 2016-10-28 11:27 | HHI.IDPN ---
Note Infectious Disease Note Patient feels okay. Afebrile. No distress. Notes that he is ambulation without difficulty. No SWAN or visual problems. Pain 4/10 level. No drainage at scalp wound. Mild word finding difficulty. ALLERGIES PENICILLIN. Current Medications Medications (Trade) Dose Ordered Sig/Ciera Route PRN Reason Start Time Stop Time Status Last Admin Dose Admin Albuterol Sulfate (Proair Hfa Inh) 1 puff Q4H PRN INH SHORTNESS OF BREATH 10/24/16 14:00 Aspirin (Aspirin Chew) 81 mg DAILY CHEW 10/25/16 09:00 10/25/16 09:25 Budesonide/ Formoterol Fumarate (Symbicort 160-4.5 Inh) 2 puff Q12HR INH 10/24/16 21:00 10/28/16 09:04 Levetriacetam (Keppra) 500 mg Q12HR PO 10/24/16 21:00 10/28/16 09:02 Montelukast Sodium (Singulair) 10 mg HS PO 10/24/16 21:00 10/27/16 21:00 Pantoprazole Sodium (Protonix) 20 mg DAILY PO 10/25/16 09:00 10/28/16 09:02 Sodium Chloride (NS Flush) 2 ml UNSCH PRN IV FLUSH FLUSH AFTER USING IV ACCESS 10/24/16 14:00 Sodium Chloride (NS Flush) 2 ml BID IV FLUSH 10/24/16 21:00 10/28/16 09:07 Lorazepam (Ativan Inj) 1 mg Q1H PRN IVP SEIZURES 10/24/16 14:00 Docusate Sodium (Colace) 100 mg BID PO 10/24/16 21:00 10/25/16 09:24 Magnesium Hydroxide (Milk Of Magnesia Liq) 30 ml DAILY PRN PO CONSTIPATION 10/24/16 14:00 Al Hydrox/Mg Hydrox/Simethicone (Mag-Al Plus Susp Liq) 30 ml Q6H PRN PO DYSPEPSIA 10/24/16 14:00 Ondansetron HCl (Zofran Inj) 4 mg Q6H PRN IV NAUSEA OR VOMITING 10/24/16 14:00 Acetaminophen/ Hydrocodone Bitart ([place] 10-325 Mg) 1 tab Q4H PRN PO PAIN SCALE 1 TO 5 10/24/16 14:00 Acetaminophen/ Hydrocodone Bitart ([place] 10-325 Mg) 2 tab Q4H PRN PO PAIN SCALE 6 TO 10 10/24/16 14:00 Morphine Sulfate (Morphine Inj) 2 mg Q2H PRN IV breakthrough pain> 6 10/24/16 14:00 10/26/16 16:59 Cyclobenzaprine HCl (Flexeril) 10 mg Q8H PRN PO MUSCLE SPASM 10/24/16 14:00 Clonidine (Catapres) 0.1 mg Q6H PRN PO SYS BP GREATER THAN 170 MMHG 10/24/16 14:00 Acetaminophen (Tylenol) 650 mg Q4H PRN PO TEMPERATURE > 101.5 F 10/24/16 14:00 Menthol (Lucile Litzy) 1 lozenge UNSCH PRN BUCCAL SORE THROAT 10/24/16 14:00 Zolpidem Tartrate 5 mg 5 mg HS PRN PO INSOMNIA 10/24/16 14:00 10/28/16 02:39 Pharmacy Profile Note 0 ml @ 0 mls/hr UNSCH OTHER 10/25/16 16:30 Vancomycin HCl/ Sodium Chloride (Vancomycin Inj/ NS 500 ml Inj) 515 ml @ 250 mls/hr Q12H IV 10/28/16 01:00 10/28/16 00:34 Miscellaneous Information SPECIFIC LAB TO BE DRAWN:VANCOMYCIN TROUGH DATE TO... ONCE ONCE .XX 10/29/16 12:45 10/29/16 12:46 Dexamethasone (Decadron) 2 mg BID PO 10/28/16 21:00 Miscellaneous (Pill Splitter) 1 ea UNSCH PRN OTHER SEE LABEL COMMENTS 10/28/16 11:00 OBJECTIVE Vital Signs Date Time Temp Pulse Resp B/P Pulse Ox O2 Delivery O2 Flow Rate FiO2 10/28/16 08:00 97.9 68 18 115/69 95 10/28/16 04:00 98.2 70 20 115/68 97 10/28/16 00:00 98.4 80 16 118/72 96 10/27/16 20:00 98.1 71 18 112/56 96 10/27/16 16:00 98.1 78 20 124/65 96 10/27/16 12:00 98.0 76 20 146/71 91 Laboratory Tests Test 10/27/16 10/28/16 07:18 07:00 Creatinine 0.99 MG/DL 0.89 MG/DL Estimat Glomerular Filtration 76 ML/MIN 86 ML/MIN Rate Wound culture final - Staph aureus. PHYSICAL EXAMINATION GENERAL: No acute distress. HEENT: Head incision dry. No drainage or erythema. NECK: Supple, No adenopathy. LUNGS: Breath sounds clear. HEART: Regular rate and rhythm without murmurs, rubs or gallops. EXTREMITIES: No clubbing or cyanosis or edema. IV site at r. forearm intact. SKIN: No rash. NEUROLOGIC: Nonfocal. PSYCHIATRIC: Calm and cooperative. IMPRESSION Craniotomy wound infection. Staph aureus. Infected subgaleal fluid postop. Status post craniotomy flap and resection of brain mass. Path shows Glioblastoma. Leukocytosis improved. PLAN: Vancomycin IV outpatient until november 11 and follow up with outpatient ID Dr. Hawk in 1 week. PIC line ordered for the IV antibiotic. Discharge when IV antibiotic is arranged and PIC is placed. Discussed with correctional case manager, patient and . Noel Garcia MD Oct 28, 2016 11:27
[2016-10-28 11:59] VITALS: BP 114/68; PULSE 70; RESP 20; TEMP 98.3; O2SAT 95
--- NOTE | 2016-10-28 14:47 | RADRPT ---
EXAM DATE/TIME: 10/28/2016 14:09 [facility] COMPARISON: No previous studies available for comparison. INDICATIONS : Post PICC line placement. MEDICAL HISTORY : Brain Tumor. SURGICAL HISTORY : Tonsillectomy. Craniotomy. ENCOUNTER: Initial ACUITY: 2 weeks PAIN SCORE: 0/10 LOCATION: Right chest FINDINGS: A single view of the chest demonstrates the lungs to be symmetrically aerated without evidence of mas s, infiltrate or effusion. The cardiomediastinal contours are unremarkable. Osseous structures are intact. A right-sided PICC line with the tip at the cava atrial junction. CONCLUSION: 1. Right-sided PICC line in good position. Devan Garza Jr., MD on October 28, 2016 at 14:45 Board Certified Radiologist. This report was verified electronically.
[2016-10-28 15:51] VITALS: BP 114/66; PULSE 76; RESP 20; TEMP 98.3; O2SAT 97
--- NOTE | 2016-10-28 16:40 | HHI.FF ---
Face to Face Verification Diagnosis: (1) Wound infection after surgery (2) Intracranial mass Physical Therapy Order: Improve ambulation Home Health Nursing Order: Medical education Signs/symptoms of disease process Medication education-adverse effect Wound care and dressing changes Nursing assessment with vital signs IV medication administration (IV medication infusion per ID via PICC line) I have seen patient Rufino Aden on 10/28/16. My clinical findings support the need for the requested home health care services because: Deconditioned w/ increased weakness I certify that my clinical findings support that this patient is homebound because: Post-op weakness Unsteady gait/balance Angela Mejia Oct 28, 2016 16:40
--- NOTE | 2016-10-28 16:59 | HHI.NSPN ---
Note Status Status: Progress Note Interval History Interval History : Pt underwent an incision and debridement of left craniotomy incision on 10/24/16: LESLEY drain in place draining well. He has incisional discomfort. Difficulty sleeping. He states he ambulates and feels steady but would like to work with PT. No nausea or vomiting. 10/26: Patient is doing well today. He states he had a slight strange feeling to the forehead when the dressing to his head was taken off earlier but he states it wasn't a headache. Otherwise he had no complaints. He states that he has been up walking without any problems. 10/27: Patient is doing well and seen ambulating the halls. His only complaint is some soreness or aching to the incision site for the I&D. The LESLEY drain was discontinued yesterday. 10/28: seen this morning during am round. doing well, stable overnight. awaiting placement of PICC line today. Ready for discharge home. Labs, Micro, & Vital Signs Results Date Time Temp Pulse Resp B/P Pulse Ox O2 Delivery O2 Flow Rate FiO2 10/28/16 15:51 98.3 76 20 114/66 97 10/28/16 11:59 98.3 70 20 114/68 95 10/28/16 08:00 97.9 68 18 115/69 95 10/28/16 04:00 98.2 70 20 115/68 97 10/28/16 00:00 98.4 80 16 118/72 96 10/27/16 20:00 98.1 71 18 112/56 96 10/28/16 07:00 Intake Total 750 ml Output Total 850 ml Balance -100 ml Constitutional Vital Signs Date Time Temp Pulse Resp B/P Pulse Ox O2 Delivery O2 Flow Rate FiO2 10/28/16 15:51 98.3 76 20 114/66 97 10/28/16 11:59 98.3 70 20 114/68 95 10/28/16 08:00 97.9 68 18 115/69 95 10/28/16 04:00 98.2 70 20 115/68 97 10/28/16 00:00 98.4 80 16 118/72 96 10/27/16 20:00 98.1 71 18 112/56 96 10/28/16 07:00 Intake Total 750 ml Output Total 850 ml Balance -100 ml Review of Systems/Exam Exam Alert, speech is fluent. Conversing well. Left wound incision is well approximated left episcopalian, sutures intact Motor strength 5/5 to all major flexion & extension muscle groups CN: pupils equal, facial motor symmetric Medications Current Medications Current Medications Medications (Trade) Dose Ordered Sig/Ciera Route PRN Reason Start Time Stop Time Status Last Admin Dose Admin Albuterol Sulfate (Proair Hfa Inh) 1 puff Q4H PRN INH SHORTNESS OF BREATH 10/24/16 14:00 Aspirin (Aspirin Chew) 81 mg DAILY CHEW 10/25/16 09:00 10/25/16 09:25 Budesonide/ Formoterol Fumarate (Symbicort 160-4.5 Inh) 2 puff Q12HR INH 10/24/16 21:00 10/28/16 09:04 Levetriacetam (Keppra) 500 mg Q12HR PO 10/24/16 21:00 10/28/16 09:02 Montelukast Sodium (Singulair) 10 mg HS PO 10/24/16 21:00 10/27/16 21:00 Pantoprazole Sodium (Protonix) 20 mg DAILY PO 10/25/16 09:00 10/28/16 09:02 Sodium Chloride (NS Flush) 2 ml UNSCH PRN IV FLUSH FLUSH AFTER USING IV ACCESS 10/24/16 14:00 Sodium Chloride (NS Flush) 2 ml BID IV FLUSH 10/24/16 21:00 10/28/16 09:07 Lorazepam (Ativan Inj) 1 mg Q1H PRN IVP SEIZURES 10/24/16 14:00 Docusate Sodium (Colace) 100 mg BID PO 10/24/16 21:00 10/25/16 09:24 Magnesium Hydroxide (Milk Of Magnesia Liq) 30 ml DAILY PRN PO CONSTIPATION 10/24/16 14:00 Al Hydrox/Mg Hydrox/Simethicone (Mag-Al Plus Susp Liq) 30 ml Q6H PRN PO DYSPEPSIA 10/24/16 14:00 Ondansetron HCl (Zofran Inj) 4 mg Q6H PRN IV NAUSEA OR VOMITING 10/24/16 14:00 Acetaminophen/ Hydrocodone Bitart ([place] 10-325 Mg) 1 tab Q4H PRN PO PAIN SCALE 1 TO 5 10/24/16 14:00 Acetaminophen/ Hydrocodone Bitart ([place] 10-325 Mg) 2 tab Q4H PRN PO PAIN SCALE 6 TO 10 10/24/16 14:00 Morphine Sulfate (Morphine Inj) 2 mg Q2H PRN IV breakthrough pain> 6 10/24/16 14:00 10/26/16 16:59 Cyclobenzaprine HCl (Flexeril) 10 mg Q8H PRN PO MUSCLE SPASM 10/24/16 14:00 Clonidine (Catapres) 0.1 mg Q6H PRN PO SYS BP GREATER THAN 170 MMHG 10/24/16 14:00 Acetaminophen (Tylenol) 650 mg Q4H PRN PO TEMPERATURE > 101.5 F 10/24/16 14:00 Menthol ([place] Litzy) 1 lozenge UNSCH PRN BUCCAL SORE THROAT 10/24/16 14:00 Zolpidem Tartrate 5 mg 5 mg HS PRN PO INSOMNIA 10/24/16 14:00 10/28/16 02:39 Pharmacy Profile Note 0 ml @ 0 mls/hr UNSCH OTHER 10/25/16 16:30 Vancomycin HCl/ Sodium Chloride (Vancomycin Inj/ NS 500 ml Inj) 515 ml @ 250 mls/hr Q12H IV 10/28/16 01:00 10/28/16 16:14 Miscellaneous Information SPECIFIC LAB TO BE DRAWN:VANCOMYCIN TROUGH DATE TO... ONCE ONCE .XX 10/29/16 12:45 10/29/16 12:46 Dexamethasone (Decadron) 2 mg BID PO 10/28/16 21:00 Miscellaneous (Pill Splitter) 1 ea UNSCH PRN OTHER SEE LABEL COMMENTS 10/28/16 11:00 Sodium Chloride (NS Flush) See Protocol DAILY IV FLUSH 10/29/16 09:00 Sodium Chloride (NS Flush) See Protocol UNSCH PRN IV FLUSH SEE PROTOCOL TABLE 10/28/16 17:00 Heparin Sodium (Porcine) (Heparin Central Flush) See Protocol DAILY IV FLUSH 10/29/16 09:00 Heparin Sodium (Porcine) (Heparin Central Flush) See Protocol UNSCH PRN IV FLUSH SEE PROTOCOL TABLE 7 17:00 Sodium Chloride (NS Flush) UNSCH PRN IV FLUSH SEE PROTOCOL TABLE 10/28/16 17:00 Medical Decision Making MDM Remarks 66 y/o male with glioblastoma grade IV s/p craniotomy with resection, developed postoperative wound infection, s/p I&D Plan Plan Remarks cont IV abx per ID recommendations for PICC line placement, follow up with rad-onc and med-onc outpatient for further treatment of his GBM follow up Dr. Head 10-14 days post-op for suture removal, please call office to schedule clear to dc with Angela Hartman Oct 28, 2016 16:59
[2016-10-28] MEDS ORDERED: SODIUM CHLORIDE 0.9% FLUSH 10 ML FLUSH IV FLUSH PRN (17:00)
[2016-10-28] MEDS ORDERED: DEXA4TAB PO (18:13)
[2016-10-28] MEDS ORDERED: DEXAMETHASONE 4 MG TAB PO SCH (21:00)
[2016-10-29] MEDS ORDERED: SODIUM CHLORIDE 0.9% FLUSH 10 ML FLUSH IV FLUSH SCH (09:00)
[2016-10-29] MEDS ORDERED: PHARMACY ORDERED LAB ONE (12:45)
== END 2016-10-28 19:41 | disposition home health service (06) | DRG 857 ==
LOC: HSDC 07:43 → HSDI 13:53 → N05A 15:51
PROVIDERS: ADMIT Neurological Surgery; ATTEND Neurological Surgery
PROC: 0KC Muscles, Extirpation (ICD-10-PCS; principal; 2016-10-24 12:35)
PROC: 02HV33Z Insertion of Infusion Device into Superior Vena Cava, Percutaneous Approach (ICD-10-PCS; 2016-10-28)
DX: T81.4XXA Infection following a procedure, initial encounter (principal); R47.01 Aphasia; C71.2 Malignant neoplasm of temporal lobe; L02.811 Cutaneous abscess of head [any part, except face]; J45.909 Unspecified asthma, uncomplicated; K21.9 Gastro-esophageal reflux disease without esophagitis; G47.9 Sleep disorder, unspecified; B95.61 Methicillin susceptible Staphylococcus aureus infection as the cause of diseases classified elsewhere; Z87.891 Personal history of nicotine dependence; Z88.0 Allergy status to penicillin
CPT/HCPCS: 36569; 71010; 76937; 80048; 80053; 80202; 82565; 83735; 85007; 85025; 85027; 85610; 86403; 87070; 87147; 87186; 87205; 94150; J1580; J2250; J2270; J2405; J2710; J3010; J3370; J3480; J7040; J7050; J7120; J8540